=== PATIENT | male | born 1940 | race Caucasian/White ===

== ENCOUNTER 2018-12-15 13:35 | Inpatient (IN) ==
[2018-12-15] MEDS ORDERED: Nitroglycerin 0.4 MG TAB.SUBL SL PRN (13:54)
--- NOTE | 2018-12-15 13:54 | Emergency Department Note ---
Disposition Clinical Impression: Elevated lactic acid level Chest pain Qualifiers: Chest pain type: unspecified Qualified Code(s): R07.9 - Chest pain, unspecified Disposition: Admitted As Inpatient Chest Pain HPI - General Chief Complaint: ED Chest Pain Stated Complaint: chest pain Time Seen by Provider: 12/15/18 13:53 Source: patient Limitations: no limitations Vital Signs Reviewed: Yes Nursing Notes Reviewed: Yes - History of Present Illness HPI Narrative: 78-year-old male presents emergency department concern for chest burning. Patient states that this started last night, but really got worse this morning at 7 AM. Patient states that he has been nauseous all day, but he started becoming more diaphoretic and the chest burning got worse this afternoon which prompted his visit to the emergency department. Patient states that the chest burning radiates into his lower extremities, he also states that he has chronic back pain, but this is worse today. Patient does not have a history of myocardial infarction the past. Severity scale (1-10): 6 - Related Data Home Medications Medication Instructions Recorded Confirmed Baclofen [Lioresal] 10 mg PO HS 11/20/18 12/15/18 Meloxicam [Mobic] 7.5 mg PO BID 11/20/18 12/15/18 Minocycline HCl 100 mg PO BID 11/20/18 12/15/18 Primidone [Mysoline] 50 mg PO HS 11/20/18 12/15/18 Ropinirole HCl [Requip] 0.25 mg PO HS 11/20/18 12/15/18 Metoprolol Succinate [Toprol Xl] 75 mg PO DAILY 12/15/18 12/15/18 OxyCODONE/APAP 5/325 [Percocet 1 each PO Q6HR PRN 12/15/18 12/15/18 5/325 MG] Previous Rx's Medication Instructions Recorded BuPROPion XL (24 HR) [Wellbutrin 150 mg PO DAILY #7 tab.er.24h 02/05/17 Xl] Allergies Allergy/AdvReac Type Severity Reaction Status Date / Time lisinopril AdvReac Cough Verified 09/01/15 12:05 NSAIDS (Non-Steroidal AdvReac See Verified 09/01/15 12:05 Anti-Inflamma Comments All systems ED: reviewed and negative except as stated. Review of Systems: As Per HPI Constitutional: Denies: fever Cardiovascular: Reports: chest pain Respiratory: Denies: cough Gastrointestinal: Reports: nausea, vomiting, hematochezia Musculoskeletal: Reports: back pain Chest Pain PMH - Past Medical History Medical history: Reports: CVA, GERD, GI bleed, hyperlipidemia, hypertension Psychiatric history: Reports: depression - Social History Smoking Status: Never smoker Alcohol use: Reports: none Drug use: Reports: none Physical Exam - General Limitations: no limitations General appearance: alert - Eye Eye exam: Present: EOMI - ENT ENT exam: mucous membranes dry - Neck Neck exam: Present: trachea midline - Chest Chest inspection: Present: symmetric chest wall rise - Respiratory Respiratory exam: Present: normal lung sounds bilaterally. Absent: respiratory distress - Cardiovascular Cardiovascular exam: Present: tachycardia, irregular rhythm - Abdominal Exam Abdominal exam: Present: soft, Non-Tender. Absent: distention, guarding, rebou nd, rigidity - Extremities Exam Extremities exam: Present: normal capillary refill - Back Exam Back exam: Present: full ROM - Neurological Exam Neurological exam: Present: alert, oriented X3 - Psychiatric Psychiatric exam: Present: anxious - Skin Skin exam: Present: diaphoresis Course Vital Signs Temperature 98.6 F 12/15/18 13:42 Pulse Rate 111 12/15/18 13:42 Respiratory Rate 16 12/15/18 13:42 Blood Pressure 165/117 12/15/18 13:42 O2 Sat by Pulse Oximetry 100 12/15/18 13:42 Temperature 99.2 F 12/15/18 21:58 Pulse Rate 93 12/15/18 21:58 Respiratory Rate 16 12/15/18 21:58 Blood Pressure 107/56 12/15/18 21:58 O2 Sat by Pulse Oximetry 94 12/15/18 21:58 Oxygen Delivery Oxygen Delivery Room Air Chest Pain - [facility] Narrative Medical decision making narrative: 78-year-old male presents emergency department with concern for chest burning sensation that radiates to the back and legs. It is noted that patient had ST depressions in the septal leads that are new from previous ECG. Also shows a patient has an irregular rhythm. Concerning going in and out of atrial flutter. Chest pain relieved by nitroglycerin. After 3 sublingual nitroglycerin, pain is resolved completely. Initial troponin was negative here. I spoke to the web application dev specialist, Dr. Murillo, who is aware of the case. We did obtain a dissection study due to concern of all the patient's symptoms. There is no evidence of dissection. However, there was possibility of pericholecystic fluid versus wall thickening. We did obtain a gallbladder ultrasound. This revealed some sludging of the gallbladder with borderline prominent common bile duct. Patient did have mildly elevated hepatic transaminases. Patient to be admitted to the hospital for further observation and treatment of troponins. There was reported social situation as friends do not want to take care of the patient anymore as it has been difficult. Patient admitted to the hospital stable and not in acute distress. Chest X-Ray 12/15/18 13:54 IMPRESSION: Degenerative changes seen in both shoulders Mild cardiomegaly D/ / Stalin Lara MD / Stalin Lara MD Interpreting Provider: Stalin Lara MD Dissection 12/15/18 13:56 IMPRESSION: 1. Somewhat motion limited examination. 2. No evidence of aortic dissection or aneurysm. 3. Suggestion of pericholecystic fluid versus wall thickening, correlate for signs or symptoms of right upper quadrant tenderness. This can be further evaluated via dedicated ultrasound of the right upper quadrant. 4. Partial imaging of a nodular right thyroid gland, this can be further evaluated via dedicated outpatient ultrasound if not already performed. 5. Enlargement of the main pulmonary artery, correlate for signs or symptoms of pulmonary hypertension. D/ / 12/15/2018 16:11:53 Carrington Finn / angelita Interpreting Provider: Carrington Finn Gallbladder Ultrasound 12/15/18 16:14 IMPRESSION: Large right renal cyst measuring 8.6 cm maximally. Patient describes some pain while technologist was imaging the lesion. Mild hepatic steatosis. Some dependent sludge within the gallbladder with no acute features. Borderline prominent common bile duct at 7 mm. D/ / 12/15/2018 17:05:55 Marcelino Valles MD / alex Interpreting Provider: Marcelion Valles MD - Lab Data Result diagrams: 12/15/18 14:00 12/15/18 14:00 Lab Results 0412/15/18 12/15/18 Range/Units 14:00 14:00 14:00 WBC 13.8 H (4.3-11.1) K/mcL RBC 5.50 (4.19-5.50) M/mcL Hgb 17.0 H (12.9-16.9) g/dL Hct 51.3 H (37.5-50.1) % MCV 93.3 (83.0-100.0) fL MCH 30.9 (28.0-33.3) pg MCHC 33.1 (31.6-35.5) g/dL RDW 14.2 (11.5-14.5) % Plt Count 207 (140-400) K/mcL MPV 11.1 (9.4-12.4) fL Immature Gran % 0.4 (0-4) % Seg Neutrophils % 93.9 % Lymphocytes % 3.8 % Monocytes % 1.2 % Eosinophils % 0.4 % Basophils % 0.3 % Neutrophils # 13.0 H (1.6-8.9) K/mcL Lymphocytes # 0.5 L (0.6-4.6) K/mcL Monocytes # 0.2 (0.0-1.3) K/mcL Eosinophils # 0.1 (0.0-0.6) K/mcL Basophils # 0.0 (0.0-0.2) K/mcL PT 11.5 (9.4-12.1) Seconds INR 1.0 APTT 30.2 (26.0-36.0) Seconds Sodium (136-145) mEq/L Potassium (3.5-5.1) mEq/L Chloride (98-107) mEq/L Carbon Dioxide (23-29) mEq/L BUN (8-23) mg/dL Creatinine (0.70-1.30) mg/dL Est GFR ( Amer) (> 60) Est GFR (Non-Af Amer) (> 60) BUN/Creatinine Ratio (6-26) Glucose (70-105) mg/dL Calculated Osmolality (280-300) Lactic Acid (0.5-2.2) mmol/L Calcium (8.6-10.3) mg/dL Total Bilirubin (0.3-1.0) mg/dL Direct Bilirubin (0.0-0.2) mg/dL Indirect Bilirubin (0.0-1.2) mg/dL AST (13-39) Units/L ALT (7-52) Units/L Alkaline Phosphatase (34-104) Units/L Troponin I (< 0.04) ng/mL B-Natriuretic Peptide 243 H (Less than 100) pg/mL Serum Total Protein (6.4-8.9) g/dL Albumin (3.5-5.7) g/dL Globulin (2.4-3.5) g/dL Albumin/Globulin Ratio (1.1-2.2) 12/15/18 12/15/18 12/15/18 Range/Units 14:00 14:35 18:17 WBC (4.3-11.1) K/mcL RBC (4.19-5.50) M/mcL Hgb (12.9-16.9) g/dL Hct (37.5-50.1) % MCV (83.0-100.0) fL MCH (28.0-33.3) pg MCHC (31.6-35.5) g/dL RDW (11.5-14.5) % Plt Count (140-400) K/mcL MPV (9.4-12.4) fL Immature Gran % (0-4) % Seg Neutrophils % % Lymphocytes % % Monocytes % % Eosinophils % % Basophils % % Neutrophils # (1.6-8.9) K/mcL Lymphocytes # (0.6-4.6) K/mcL Monocytes # (0.0-1.3) K/mcL Eosinophils # (0.0-0.6) K/mcL Basophils # (0.0-0.2) K/mcL PT (9.4-12.1) Seconds INR APTT (26.0-36.0) Seconds Sodium 144 (136-145) mEq/L Potassium 3.8 (3.5-5.1) mEq/L Chloride 104 (98-107) mEq/L Carbon Dioxide 25 (23-29) mEq/L BUN 15 (8-23) mg/dL Creatinine 0.92 (0.70-1.30) mg/dL Est GFR ( Amer) > 60 (> 60) Est GFR (Non-Af Amer) > 60 (> 60) BUN/Creatinine Ratio 16 (6-26) Glucose 194 H (70-105) mg/dL Calculated Osmolality 304 H (280-300) Lactic Acid 3.2 H 1.9 (0.5-2.2) mmol/L Calcium 9.4 (8.6-10.3) mg/dL Total Bilirubin 2.5 H (0.3-1.0) mg/dL Direct Bilirubin 1.3 H (0.0-0.2) mg/dL Indirect Bilirubin 1.2 (0.0-1.2) mg/dL AST 130 H (13-39) Units/L ALT 62 H (7-52) Units/L Alkaline Phosphatase 93 (34-104) Units/L Troponin I 0.03 (< 0.04) ng/mL B-Natriuretic Peptide (Less than 100) pg/mL Serum Total Protein 6.7 (6.4-8.9) g/dL Albumin 4.4 (3.5-5.7) g/dL Globulin 2.3 L (2.4-3.5) g/dL Albumin/Globulin Ratio 1.9 (1.1-2.2) - EKG Data EKG attestation: Yes I reviewed and interpreted this EKG. EKG results narrative: 13:42 Heart rate 92 bpm, no PA interval, QRS duration 157 ms, QT 366 ms, right axis deviation. Atrial flutter. There are ST depressions noted in the septal leads. No from previous ECG. 13:50 No acute changes on this ECG when in comparison with the previous study obtained at 1342 Heart Score - Score History: Moderately Suspicious EKG: Significant ST-Depression Age: Greater than 65 Risk Factors: 1-2 risk factors Troponin: Less than normal limit HEART Score Total: 6
[2018-12-15] MEDS ORDERED: Nitroglycerin 0.4 MG TAB.SUBL SL ONE (13:55)
[2018-12-15] MEDS ORDERED: 0.9 % Sodium Chloride 1,000 ML ONE (13:55)
[2018-12-15] MEDS ORDERED: Ondansetron 4 MG/2 ML VIAL ONE (13:55)
[2018-12-15] MEDS ORDERED: Ondansetron 4 MG/2 ML VIAL IVP ONE (13:56)
[2018-12-15] MEDS ORDERED: Isovue-370 500 ML BOTTLE IVP ONE (13:56)
[2018-12-15 14:25] LABS: Basophils % 0.3 %; Eosinophils # 0.1 K/mcL (0.0-0.6); Eosinophils % 0.4 %; Hematocrit 51.3 % (37.5-50.1); Immature Granulocytes % 0.4 % (0-4); Lymphocytes # 0.5 K/mcL (0.6-4.6); Lymphocytes % 3.8 %; Mean Corpuscular HGB Conc 33.1 g/dL (31.6-35.5); Mean Corpuscular Hemoglobin 30.9 pg (28.0-33.3); Mean Corpuscular Volume 93.3 fL (83.0-100.0); Mean Platelet Volume 11.1 fL (9.4-12.4); Monocytes # 0.2 K/mcL (0.0-1.3); Monocytes % 1.2 %; Platelet Count 207 K/mcL (140-400); Red Cell Distribution Width 14.2 % (11.5-14.5); Segmented Neutrophils % 93.9 %
[2018-12-15] MEDS ORDERED: 0.9 % Sodium Chloride 1,000 ML IVC ONE (14:31)
[2018-12-15 14:34] LABS: Prothrombin Time 11.5 Seconds (9.4-12.1)
[2018-12-15 14:36] LABS: Activated Partial Thrombo Time 30.2 Seconds (26.0-36.0)
[2018-12-15 14:39] LABS: BUN/Creatinine Ratio 16 (6-26); Blood Urea Nitrogen 15 mg/dL (8-23); Calcium 9.4 mg/dL (8.6-10.3); Carbon Dioxide 25 mEq/L (23-29); Chloride 104 mEq/L (98-107); Glucose 194 mg/dL (70-105); Osmolality,Calculated 304 (280-300); Potassium 3.8 mEq/L (3.5-5.1); Sodium 144 mEq/L (136-145); Troponin I 0.03 ng/mL (< 0.04); eGFR For Non-African Americans > 60 (> 60)
--- NOTE | 2018-12-15 14:59 | Emergency Department Note ---
Disposition Clinical Impression: Elevated lactic acid level Chest pain Qualifiers: Chest pain type: unspecified Qualified Code(s): R07.9 - Chest pain, unspecified Disposition: Admitted As Inpatient Chest Pain HPI - General Chief Complaint: ED Chest Pain Stated Complaint: chest pain Time Seen by Provider: 12/15/18 13:53 Source: patient Limitations: no limitations - History of Present Illness Severity scale (1-10): 6 - Related Data Home Medications Medication Instructions Recorded Confirmed Minocycline HCl 100 mg PO BID 11/20/18 12/15/18 RX: Baclofen [Lioresal] 10 mg PO HS 11/20/18 12/15/18 RX: Meloxicam [Mobic] 7.5 mg PO BID 11/20/18 12/15/18 RX: Primidone [Mysoline] 50 mg PO HS 11/20/18 12/15/18 Ropinirole HCl [Requip] 0.25 mg PO HS 11/20/18 12/15/18 Metoprolol Succinate [Toprol Xl] 75 mg PO DAILY 12/15/18 12/15/18 OxyCODONE/APAP 5/325 [Percocet 1 each PO Q6HR PRN 12/15/18 12/15/18 5/325 MG] Previous Rx's Medication Instructions Recorded RX: BuPROPion XL (24 HR) 150 mg PO DAILY #7 tab.er.24h 02/05/17 [Wellbutrin Xl] Allergies Allergy/AdvReac Type Severity Reaction Status Date / Time lisinopril AdvReac Cough Verified 09/01/15 12:05 NSAIDS (Non-Steroidal AdvReac See Verified 09/01/15 12:05 Anti-Inflamma Comments Chest Pain PMH - Past Medical History Medical history: Reports: CVA, GERD, GI bleed, hyperlipidemia, hypertension Psychiatric history: Reports: depression - Social History Smoking Status: Never smoker Alcohol use: Reports: none Drug use: Reports: none Physical Exam - General Limitations: no limitations General appearance: alert Course Vital Signs Temperature 98.6 F 12/15/18 13:42 Pulse Rate 111 12/15/18 13:42 Respiratory Rate 16 12/15/18 13:42 Blood Pressure 165/117 12/15/18 13:42 O2 Sat by Pulse Oximetry 100 12/15/18 13:42 Temperature 99.2 F 12/15/18 21:58 Pulse Rate 93 12/15/18 21:58 Respiratory Rate 16 12/15/18 21:58 Blood Pressure 107/56 12/15/18 21:58 O2 Sat by Pulse Oximetry 94 12/15/18 21:58 Oxygen Delivery Oxygen Delivery Room Air Chest Pain - Lab Data Result diagrams: 12/15/18 14:00 12/15/18 14:00 Lab Results 12/15/18 12/15/18 12/15/18 Range/Units 14:00 14:00 14:00 WBC 13.8 H (4.3-11.1) K/mcL RBC 5.50 (4.19-5.50) M/mcL Hgb 17.0 H (12.9-16.9) g/dL Hct 51.3 H (37.5-50.1) % MCV 93.3 (83.0-100.0) fL MCH 30.9 (28.0-33.3) pg MCHC 33.1 (31.6-35.5) g/dL RDW 14.2 (11.5-14.5) % Plt Count 207 (140-400) K/mcL MPV 11.1 (9.4-12.4) fL Immature Gran % 0.4 (0-4) % Seg Neutrophils % 93.9 % Lymphocytes % 3.8 % Monocytes % 1.2 % Eosinophils % 0.4 % Basophils % 0.3 % Neutrophils # 13.0 H (1.6-8.9) K/mcL Lymphocytes # 0.5 L (0.6-4.6) K/mcL Monocytes # 0.2 (0.0-1.3) K/mcL Eosinophils # 0.1 (0.0-0.6) K/mcL Basophils # 0.0 (0.0-0.2) K/mcL PT 11.5 (9.4-12.1) Seconds INR 1.0 APTT 30.2 (26.0-36.0) Seconds Sodium (136-145) mEq/L Potassium (3.5-5.1) mEq/L Chloride (98-107) mEq/L Carbon Dioxide (23-29) mEq/L BUN (8-23) mg/dL Creatinine (0.70-1.30) mg/dL Est GFR ( Amer) (> 60) Est GFR (Non-Af Amer) (> 60) BUN/Creatinine Ratio (6-26) Glucose (70-105) mg/dL Calculated Osmolality (280-300) Lactic Acid (0.5-2.2) mmol/L Calcium (8.6-10.3) mg/dL Total Bilirubin (0.3-1.0) mg/dL Direct Bilirubin (0.0-0.2) mg/dL Indirect Bilirubin (0.0-1.2) mg/dL AST (13-39) Units/L ALT (7-52) Units/L Alkaline Phosphatase (34-104) Units/L Troponin I (< 0.04) ng/mL B-Natriuretic Peptide 243 H (Less than 100) pg/mL Serum Total Protein (6.4-8.9) g/dL Albumin (3.5-5.7) g/dL Globulin (2.4-3.5) g/dL Albumin/Globulin Ratio (1.1-2.2) 12/15/18 12/15/18 12/15/18 Range/Units 14:00 14:35 18:17 WBC (4.3-11.1) K/mcL RBC (4.19-5.50) M/mcL Hgb (12.9-16.9) g/dL Hct (37.5-50.1) % MCV (83.0-100.0) fL MCH (28.0-33.3) pg MCHC (31.6-35.5) g/dL RDW (11.5-14.5) % Plt Count (140-400) K/mcL MPV (9.4-12.4) fL Immature Gran % (0-4) % Seg Neutrophils % % Lymphocytes % % Monocytes % % Eosinophils % % Basophils % % Neutrophils # (1.6-8.9) K/mcL Lymphocytes # (0.6-4.6) K/mcL Monocytes # (0.0-1.3) K/mcL Eosinophils # (0.0-0.6) K/mcL Basophils # (0.0-0.2) K/mcL PT (9.4-12.1) Seconds INR APTT (26.0-36.0) Seconds Sodium 144 (136-145) mEq/L Potassium 3.8 (3.5-5.1) mEq/L Chloride 104 (98-107) mEq/L Carbon Dioxide 25 (23-29) mEq/L BUN 15 (8-23) mg/dL Creatinine 0.92 (0.70-1.30) mg/dL Est GFR ( Amer) > 60 (> 60) Est GFR (Non-Af Amer) > 60 (> 60) BUN/Creatinine Ratio 16 (6-26) Glucose 194 H (70-105) mg/dL Calculated Osmolality 304 H (280-300) Lactic Acid 3.2 H 1.9 (0.5-2.2) mmol/L Calcium 9.4 (8.6-10.3) mg/dL Total Bilirubin 2.5 H (0.3-1.0) mg/dL Direct Bilirubin 1.3 H (0.0-0.2) mg/dL Indirect Bilirubin 1.2 (0.0-1.2) mg/dL AST 130 H (13-39) Units/L ALT 62 H (7-52) Units/L Alkaline Phosphatase 93 (34-104) Units/L Troponin I 0.03 (< 0.04) ng/mL B-Natriuretic Peptide (Less than 100) pg/mL Serum Total Protein 6.7 (6.4-8.9) g/dL Albumin 4.4 (3.5-5.7) g/dL Globulin 2.3 L (2.4-3.5) g/dL Albumin/Globulin Ratio 1.9 (1.1-2.2) Attestation Statement - Attestation Attestation: Resident Attestation: I examined this patient and my medical decision making was reviewed with the Resident Physician. I agree with the documented findings, disposition and treatment plan as described except to the extent set forth below. We independently had [id number] contact with the patient. EKG reviewed with resident physician. Please see documentation. Patient presenting today for evaluation of chest pain and back pain. Patient states overall symptoms of back pain or lower hip pain which been previously evaluated by pain management. Patient has had one week of fatigue with decreased appetite and associated nausea. Patient developed chest pain last night. Chest pain across his chest which she describes as sharp when asked about pressure he states that is a better description. Patient has nausea and did have an episode of vomiting while in the emergency department. Patient states the back pain radiates up into the thoracic spine. Patient is tachy cardic at 120. Patient does have ST depression in V1 and V2. Posterior EKG was performed without any evidence of elevation. Patient EKG change from prior EKG. Patient will undergo further evaluation for chest pain including CT scan for aortic dissection. The patient does not have any murmurs on exam. Patient lungs are clear to auscultation bilaterally, abdomen is soft nontender to palpation. No evidence of lesions, rashes, ecchymosis to the skin. Patient will receive fluids as well as reevaluation. Disposition pending.
[2018-12-15] MEDS ORDERED: 0.9 % Sodium Chloride 500 ML IVC ONE (16:19)
[2018-12-15 16:36] LABS: Alanine Aminotransferase 62 Units/L (7-52); Albumin 4.4 g/dL (3.5-5.7); Albumin/Globulin Ratio 1.9 (1.1-2.2); Alkaline Phosphatase 93 Units/L (34-104); Aspartate Amino Transferase 130 Units/L (13-39); Bilirubin,Direct 1.3 mg/dL (0.0-0.2); Bilirubin,Indirect 1.2 mg/dL (0.0-1.2); Bilirubin,Total 2.5 mg/dL (0.3-1.0); Globulin 2.3 g/dL (2.4-3.5); Total Protein 6.7 g/dL (6.4-8.9)
[2018-12-15] MEDS ORDERED: Aspirin 325 MG TABLET PO ONE (18:14)
[2018-12-15] MEDS ORDERED: Naloxone 0.4 MG/ML INJ IVP PRN (19:05)
[2018-12-15] MEDS: Metoprolol XL (24 HR) Succ 50 MG TAB.ER.24H PO SCH (20:15)
--- NOTE | 2018-12-15 21:21 | Internal Med History&Physical ---
Date of Encounter: 12/15/18 Time of Encounter: 19:00 Internal Medicine - H&P: HPI Chief complaint: CHEST PAIN Admitted From: Home Plans for Post Hospital Care: Home History of present illness: The patient is a 78-year-old male. Never been diagnosed with a cardiovascular/cerebrovascular disease. It was started today morning when he woke up with severe chest pain across his anterior chest. Burning quality. Seven-point on 10-point scale. With some radiation to lower extremities. Associated with some nausea. Not associated with other symptoms like dyspnea, diaphoresis or, nausea or vomiting. He has not had any coughing or wheezing recently. His suddenly last week. The pain lasted for about 1 hour; was nearly gone when he was arriving to the emergency department. He has not experienced any other chest pain recently. I found him in bed; in the emergency department. He was pain free. However, he tells me that he suffers from severe low back pain. He can be standing/walking not longer than 15 minutes. He had a low back surgery sometime last yeardone by Dr. Rojas. He takes average of 3 tablets of Percocet (5/325) per day to control his low back pain. The patient had chemical stress test done before his last year surgery. It was normal. PAST MEDICAL HX: He has been treated for hypertension, hyperlipidemia and GERD. He had her GI bleeding in the past. He suffers from chronic low back pain; see above. PAST FAMILY HX: Positive for HTN. PAST SOCIAL HX: He has never used tobacco. Denies alcohol and illicit drugs use. REVIEW OF SYSTEMS: All 14 organ systems were reviewed by me with the patient. Positive and pertinent negative findings are listed above. The rest of organ systems is negative. PHYSICAL EXAM: Skin: Free of rash and discoloration. Eyes: Sclera is white. There is no discharge from eyes. ENMT: Oral/pharyngeal mucosa is normal in appearance. There is no discharge from nose or ears. Respiratory: Normal breath sounds with no crackles and wheezes bilaterally. CV: Heart is regular with no gallop or murmur. GI: Abdomen is flat and soft with no palpable mass or visceromegaly. : There is no tenderness in patient's flanks bilaterally. Neuro exam: He has good strength in upper and lower extremities. He has normal eye movements. Psychiatric: He has decreased affect. His thought process is appropriate to the situation. ADDITIONAL DATA: EKG done at admission shows sinus tachycardia with no evidence for ischemia or other abnormalities. Chest x-ray showed mild cardiomegaly. CT angiogram (dissection study) did not show any evidence of aortic dissection or aneurysm. It showed suggestion of pericholecystic fluid versus wall thickening; of gallbladder. Ultrasound of gallbladder showed some dependent sludge within the gallbladder, with no acute features. It showed large right renal cyst, measuring 8.6 cm maximally. CBC shows hemoglobin of 17.0 with WBC of 13.8 thousand and normal platelet count. Electrolytes are normal. Creatinine is 0.92. Random glucose is 194. Troponin is 0.03 with BNP of 243. A/P: Atypical chest pain. No history of cardiovascular/cerebrovascular disease. Normal chemical her stress test done last year. I will watch him in the telemetry floor. I will repeat EKG and troponin in the morning. Leukocytosis. Could be reactive. I will repeat his CBC tomorrow morning. Chronic low back pain. History of low back surgery (2018). To continue when necessary Percocet and other medications for pain control. Past Med Surg Social Fam HX - Past Medical History Medical history: CVA, GERD, GI bleed, hyperlipidemia, hypertension Additional medical history: heart murmur Psychiatric history: depression - Past Surgical History Additional surgical history: T&A. colonoscopy - Social History Smoking Status: Never smoker Smokeless Tobacco Status: No Alcohol use: none Drug use: none Internal Medicine - H&P: Meds BuPROPion XL (24 HR) [Wellbutrin Xl] 150 mg PO DAILY #7 tab.er.24h 02/05/17 [Rx] Baclofen [Lioresal] 10 mg PO HS 11/20/18 [History] Meloxicam [Mobic] 7.5 mg PO BID 11/20/18 [History] Minocycline HCl 100 mg PO BID 11/20/18 [History] Primidone [Mysoline] 50 mg PO HS 11/20/18 [History] Ropinirole HCl [Requip] 0.25 mg PO HS 11/20/18 [History] Metoprolol Succinate [Toprol Xl] 75 mg PO DAILY 12/15/18 [History] OxyCODONE/APAP 5/325 [Percocet 5/325 MG] 1 each PO Q6HR PRN 12/15/18 [History] Allergy/AdvReac Type Severity Reaction Status Date / Time lisinopril AdvReac Cough Verified 09/01/15 12:05 NSAIDS (Non-Steroidal AdvReac See Verified 09/01/15 12:05 Anti-Inflamma Comments - Constitutional Vitals: Temp Pulse Resp BP Pulse Ox 98.6 F 125 16 139/81 93 12/15/18 13:42 12/15/18 20:16 12/15/18 20:16 12/15/18 20:16 12/15/18 20:16 General appearance: Present: A&O X 3, no acute distress, answers questions appropriately Exam: xx Internal Med - H&P Results - Labs CBC & Chem 7: 12/15/18 14:00 12/15/18 14:00 Labs: Short CBC 12/15/18 Range/Units 14:00 WBC 13.8 H (4.3-11.1) K/mcL Hgb 17.0 H (12.9-16.9) g/dL Hct 51.3 H (37.5-50.1) % Plt Count 207 (140-400) K/mcL Neutrophils # 13.0 H (1.6-8.9) K/mcL BMP 12/15/18 14:00 Sodium 144 Potassium 3.8 Chloride 104 Carbon Dioxide 25 BUN 15 Creatinine 0.92 Glucose 194 H Calcium 9.4 Cardiac Enzymes 12/15/18 Range/Units 14:00 Troponin I 0.03 (< 0.04) ng/mL Liver Function 12/15/18 Range/Units 14:00 Total Bilirubin 2.5 H (0.3-1.0) mg/dL Direct Bilirubin 1.3 H (0.0-0.2) mg/dL AST 130 H (13-39) Units/L ALT 62 H (7-52) Units/L Alkaline Phosphatase 93 (34-104) Units/L Albumin 4.4 (3.5-5.7) g/dL - Impressions ITS Impressions Chest X-Ray 12/15/18 13:54 IMPRESSION: Degenerative changes seen in both shoulders Mild cardiomegaly D/ / Stalin Lara MD / Stalin Lara MD Interpreting Provider: Stalin Lara MD Dissection 12/15/18 13:56 IMPRESSION: 1. Somewhat motion limited examination. 2. No evidence of aortic dissection or aneurysm. 3. Suggestion of pericholecystic fluid versus wall thickening, correlate for signs or symptoms of right upper quadrant tenderness. This can be further evaluated via dedicated ultrasound of the right upper quadrant. 4. Partial imaging of a nodular right thyroid gland, this can be further evaluated via dedicated outpatient ultrasound if not already performed. 5. Enlargement of the main pulmonary artery, correlate for signs or symptoms of pulmonary hypertension. D/ / 12/15/2018 16:11:53 Carrington Finn / angelita Interpreting Provider: Carrington Finn Gallbladder Ultrasound 12/15/18 16:14 IMPRESSION: Large right renal cyst measuring 8.6 cm maximally. Patient describes some pain while technologist was imaging the lesion. Mild hepatic steatosis. Some dependent sludge within the gallbladder with no acute features. Borderline prominent common bile duct at 7 mm. D/ / 12/15/2018 17:05:55 Marcelino Valles MD / [facility] Interpreting Provider: Marcelino Valles MD - Assessment and Plan (1) Atypical chest pain Current Visit: Yes Status: Acute (2) Leukocytosis Current Visit: Yes Status: Acute Qualifiers: Leukocytosis type: unspecified Qualified Code(s): D72.829 - Elevated white blood cell count, unspecified (3) Chronic low back pain Current Visit: Yes Status: Acute Qualifiers: Back pain laterality: midline Sciatica presence: without sciatica Qualified Code(s): M54.5 - Low back pain; G89.29 - Other chronic pain - Time Spent With Patient Total time spent is greater than 50% in coordination of care (as documented) at patient's floor/unit and/or counseling patient: 25 - 35 minutes
[2018-12-15] MEDS: Primidone 50 MG TABLET PO SCH (21:32)
[2018-12-15] MEDS: Baclofen 10 MG TABLET PO SCH (21:32)
[2018-12-15] MEDS: rOPINIRole 0.25 MG TABLET PO SCH (21:33)
[2018-12-15] MEDS: *HR* OxyCODONE/APAP 5/325 TABLET PO PRN (21:52)
[2018-12-16 02:45] LABS: Hematocrit 44.2 % (37.5-50.1); Mean Corpuscular HGB Conc 32.1 g/dL (31.6-35.5); Mean Corpuscular Hemoglobin 30.7 pg (28.0-33.3); Mean Corpuscular Volume 95.7 fL (83.0-100.0); Mean Platelet Volume 11.4 fL (9.4-12.4); Platelet Count 198 K/mcL (140-400); Red Blood Count 4.62 M/mcL (4.19-5.50); Red Cell Distribution Width 14.5 % (11.5-14.5); Segmented Neutrophils % 89.1 %
[2018-12-16 02:46] LABS: Basophils # 0.1 K/mcL (0.0-0.2); Basophils % 0.3 %; Eosinophils % 0.1 %; Immature Granulocytes % 0.6 % (0-4); Lymphocytes % 4.6 %; Monocytes # 1.1 K/mcL (0.0-1.3); Monocytes % 5.3 %; Neutrophils # 18.4 K/mcL (1.6-8.9)
[2018-12-16 02:47] LABS: Hemoglobin 14.2 g/dL (12.9-16.9)
[2018-12-16 03:10] LABS: Albumin 3.6 g/dL (3.5-5.7); Bilirubin,Direct 3.4 mg/dL (0.0-0.2); Bilirubin,Indirect 1.4 mg/dL (0.0-1.2); Bilirubin,Total 4.8 mg/dL (0.3-1.0); Globulin 1.8 g/dL (2.4-3.5); Total Protein 5.4 g/dL (6.4-8.9); Troponin I 0.05 ng/mL (< 0.04)
[2018-12-16] MEDS: BuPROPion XL (24 HR) 150 MG TABLET PO SCH (09:09)
[2018-12-16] MEDS: Metoprolol XL (24 HR) Succ 50 MG TAB.ER.24H PO SCH (09:09)
--- NOTE | 2018-12-16 10:39 | Cardiology Consult Note ---
Date of Encounter: 12/16/18 Time of Encounter: 09:00 Assessment and Plan (1) Chest pain Current Visit: Yes Status: Acute Chest pain typical/atypical for angina. Has several risk factors for CAD. EKG unchanged from 2013. Minimal elevation in troponin to 0.05 which may be demand. Will schedule for pharmacologic stress test to evaluate for ischemia. Further recommendations pending results. Qualifiers: Chest pain type: unspecified Qualified Code(s): R07.9 - Chest pain, unspecified (2) Hypertension Current Visit: No Status: Chronic Continue current meds. Qualifiers: Hypertension type: essential hypertension Qualified Code(s): I10 - Essential (primary) hypertension Discussion w patient/family: The assessment and plan as outlined above was discussed with the patient and/or family members who expressed understanding and agreement. All questions were answered. Thank you for involving us in the care of your patient. Please call with any questions. History of Present Illness Consult date: 12/16/18 Requesting physician: Trenton Diaz Consult reason: chest pain Chief complaint: chest pain History of present illness: Mr. Tovar is a 78 year old male with HTN, hyperlipidemia, hx CVA presents to [facility] with c/o CP. For past week, pt has had intermittent substernal chest discomfort. Notes occa sional nausea associated with chest pain. Fatigued. Yesterday had worst episode lasting hours and therefore presented to ED for further evaluation and tx. Pt notes that has been very upset since last week when unexpectedly. Chest pain started after her . Denies alleviating/ exacerbating factors. While in ED, pt given 3 SL NTG which did alleviate CP. Denies prior cardiac history. Remote cardiac testing. Echocardiogram July 2016- EF 60-65%, normal LV size/function with mild concentric LVH, no sig valvular heart disease. Past Med Surg Social Fam HX - Past Medical History Medical history: CVA, GERD, GI bleed, hyperlipidemia, hypertension Additional medical history: heart murmur Psychiatric history: depression - Past Surgical History Additional surgical history: T&A. colonoscopy - Social History Smoking Status: Never smoker Smokeless Tobacco Status: No Alcohol use: none Drug use: none - Family History Brother Hx Family Cancer: Yes (skin) Hx Family Endocrine Disorder: Yes (DM) Mother Hx Family Cancer: Yes (breast) Medications and Allergies BuPROPion XL (24 HR) [Wellbutrin Xl] 150 mg PO DAILY #7 tab.er.24h 02/05/17 [Rx] Baclofen [Lioresal] 10 mg PO HS 11/20/18 [History] Meloxicam [Mobic] 7.5 mg PO BID 11/20/18 [History] Minocycline HCl 100 mg PO BID 11/20/18 [History] Primidone [Mysoline] 50 mg PO HS 11/20/18 [History] Ropinirole HCl [Requip] 0.25 mg PO HS 11/20/18 [History] Metoprolol Succinate [Toprol Xl] 75 mg PO DAILY 12/15/18 [History] OxyCODONE/APAP 5/325 [Percocet 5/325 MG] 1 each PO Q6HR PRN 12/15/18 [History] Allergy/AdvReac Type Severity Reaction Status Date / Time lisinopril AdvReac Cough Verified 09/01/15 12:05 NSAIDS (Non-Steroidal AdvReac See Verified 09/01/15 12:05 Anti-Inflamma Comments All Systems Review: The remainder of the systems were reviewed and are negative - Cardiovascular Cardiovascular: as per HPI Physical Examination Vital Signs, Last 4 Hours Temp Pulse Resp BP Pulse Ox 12/16/18 09:14 78 18 92 12/16/18 07:18 98.2 F 45 15 118/69 92 General: Conversant, No Apparent Distress HEENT: Atraumatic, Normocephaly, Mucus Membranes Moist Neck: No JVD, Normal carotid pulses Cardiac: Reg Rate and Rhythm, Normal S1 and S2, No Murmur Lungs: Normal Breath Sounds, No Wheeze, Rales, Rhonchi Neuro: Alert and responsive, No focal deficits noted Abdomen: Soft, Non-Tender Skin: No rashes noted on visualized skin Musculoskeletal: No Chest Wall Tenderness Extremities: No Clubbing, No Cyanosis, No Edema, Normal Pulses Results 12/16/18 02:19 12/15/18 14:00 Lab Results 12/15/18 12/15/18 12/15/18 14:00 14:00 14:00 WBC 13.8 H Hgb 17.0 H Hct 51.3 H Plt Count 207 INR 1.0 APTT 30.2 Sodium Potassium Chloride Carbon Dioxide BUN Creatinine Glucose Calcium Total Bilirubin AST ALT Alkaline Phosphatase Troponin I B-Natriuretic Peptide 243 H 12/15/18 12/16/18 12/16/18 14:00 02:19 02:19 WBC 20.7 H Hgb 14.2 D Hct 44.2 Plt Count 198 INR APTT Sodium 144 Potassium 3.8 Chloride 104 Carbon Dioxide 25 BUN 15 Creatinine 0.92 Glucose 194 H Calcium 9.4 Total Bilirubin 2.5 H 4.8 H AST 130 H 171 H ALT 62 H 159 H Alkaline Phosphatase 93 85 Troponin I 0.03 0.05 H* B-Natriuretic Peptide - EKG Interpretation EKG results cardiology: personally reviewed (Sinus tachycardia with PACs, RBBB, LAFB- unchanged compared to prior EKGs from 2012, 2016) Consult Discharge Plan - Plan Referrals: Alondra Reynolds, [facility] [Primary Care Provider] - (Follow up has been requested)
[2018-12-16] MEDS ORDERED: Regadenoson 0.4 MG/5 ML SYRINGE IVP ONE (10:52)
[2018-12-16] MEDS: *HR* OxyCODONE/APAP 5/325 TABLET PO PRN (15:10)
[2018-12-16] MEDS ORDERED: *HR* Heparin 5,000 UNIT/ML VIAL IVP ONE (19:35)
[2018-12-16] MEDS ORDERED: *HR* Heparin 5,000 UNIT/ML VIAL IVP PRN (19:35)
[2018-12-16 20:25] LABS: Hemoglobin 14.7 g/dL (12.9-16.9); Mean Corpuscular Hemoglobin 30.4 pg (28.0-33.3); Mean Corpuscular Volume 95.2 fL (83.0-100.0); Mean Platelet Volume 12.3 fL (9.4-12.4); Platelet Count 114 K/mcL (140-400); Red Blood Count 4.83 M/mcL (4.19-5.50); Red Cell Distribution Width 14.5 % (11.5-14.5)
[2018-12-16 20:33] LABS: INR 1.3
[2018-12-16] MEDS: Primidone 50 MG TABLET PO SCH (21:07)
[2018-12-16] MEDS: Baclofen 10 MG TABLET PO SCH (21:07)
[2018-12-16] MEDS: rOPINIRole 0.25 MG TABLET PO SCH (21:07)
[2018-12-16] MEDS: Heparin 25,000 UNIT/250 ML D5W 25,000 UNIT/250 ML IV.SOLN IVC SCH (21:11)
--- NOTE | 2018-12-16 21:23 | Internal Med Progress Note ---
Hospitalist Progress Note - Encounter Date of Encounter: 12/16/18 Time of Encounter: 19:00 - Subjective Interval History: SUBJECTIVE: The patient feels good. Denies chest pain and difficulty breathing. Denies coughing and wheezing. Denies abdominal pain, nausea and vomiting. He seems to have normal bowel movements. He has normal urination. OBJECTIVE: Skin: Free of rash and discoloration. ENMT: Oral/pharyngeal mucosa is normal in appearance. Eyes: Sclera is yellowish. There is no discharge from eyes. Respiratory: Normal breath sounds; no crackles or wheezes. CV: Heart is regular; no gallop or murmur. GI: Abdomen is soft and not tender. There is no palpable mass or visceromegaly. Neuro: There is no focal deficits. ADDITIONAL DATA: CBC shows increased WBC of 20.7 thousand; 13.8 thousand yesterday. Hemoglobin is 14.2. Platelet count is 198,000. Liver function tests from today are showing increased time bilirubin of 4.8; 2.5 yesterday. With AST of 171, ALT of 159 and alk phos of 85. They were 130, 62 and 93 yesterday respectively. Pro time INR is 1.0. The patient had stress test done today. It showed no ischemia on perfusion study. It showed extensive inferior/inferior lateral/inferior septal infarct, on perfusion study. Likely representing old [place]. Estimated ejection fraction is 40%. Cardiac telemetry: It showed normal sinus rhythm in the morning. The patient developed atrial flutter with ventricular rate of about 75 in the early afternoon. ASSESSMENT AND PLAN: Patient was admitted for evaluation of his chest pain. It looks like he has underlying coronary artery disease (had myocardial infarction in the past). Developed atrial flutter with controlled ventricular rate in the afternoon. I discussed this case with Dr. Shena Murillo, cardiology. We will start this patient on IV heparin drip. The patient eventually will need cardiac catheterization. It will be on hold due to his abnormal liver function tests. Abnormal liver function tests. It looks, that this patient is developing some kind of hepatitis. I will check his viral hepatitis panel. I will repeat his liver function tests in the morning. Leukocytosis. Likely secondary to his liver disease. I would repeat his CBC in the morning. Chronic low back pain. Had low back surgery last year. To continue when necessary Percocet. - Exam Vitals: Temp Pulse Resp BP Pulse Ox 99.1 F 97 17 127/76 92 12/16/18 19:03 12/16/18 19:03 12/16/18 19:03 12/16/18 19:03 12/16/18 19:03 Exam: xx - Assessment and Plan (1) Atypical chest pain Current Visit: Yes Status: Acute (2) CAD (coronary artery disease) Current Visit: Yes Status: Chronic (3) LFT elevation Current Visit: Yes Status: Acute (4) Leukocytosis Current Visit: Yes Status: Acute (5) Chronic low back pain Current Visit: Yes Status: Acute - Time Spent with Patient Total time spent is greater than 50% in coordination of care (as documented) at patient's floor/unit and/or counseling patient: 25 - 35 minutes Plan of Care Discussed with: patient Internal Medicine: Result - Labs CBC & Chem 7: 12/16/18 20:00 12/15/18 14:00 Labs: Short CBC 12/16/18 12/16/18 Range/Units 02: 20:00 WBC 20.7 H 14.3 H (4.3-11.1) K/mcL Hgb 14.2 D 14.7 (12.9-16.9) g/dL Hct 44.2 46.0 (37.5-50.1) % Plt Count 198 114 L (140-400) K/mcL Neutrophils # 18.4 H (1.6-8.9) K/mcL Cardiac Enzymes 12/16/18 Range/Units 02:19 Troponin I 0.05 H* (< 0.04) ng/mL Liver Function 12/16/18 Range/Units 02:19 Total Bilirubin 4.8 H (0.3-1.0) mg/dL Direct Bilirubin 3.4 H (0.0-0.2) mg/dL AST 171 H (13-39) Units/L ALT 159 H (7-52) Units/L Alkaline Phosphatase 85 (34-104) Units/L Albumin 3.6 (3.5-5.7) g/dL - ABG Interpretation ABG results: PT/INR, D-dimer PT 15.0 Seconds (9.4-12.1) H 12/16/18 20:00 - Impressions Impressions Gallbladder Ultrasound 12/15/18 16:14 IMPRESSION: Large right renal cyst measuring 8.6 cm maximally. Patient describes some pain while technologist was imaging the lesion. Mild hepatic steatosis. Some dependent sludge within the gallbladder with no acute features. Borderline prominent common bile duct at 7 mm. D/ / 12/15/2018 17:05:55 Marcelino Valles MD / alex Interpreting Provider: Marcelino Valles MD Consult Discharge Plan - Plan Referrals: Alondra Reynolds CNP [Primary Care Provider] - (Follow up has been requested) (2) CAD (coronary artery disease) Qualifiers: Coronary Disease-Associated Artery/Lesion type: [place] artery [place] vs. transplanted heart: [place] heart Associated angina: with unspecified angina Qualified Code(s): I25.119 - Atherosclerotic heart disease of [place] coronary artery with unspecified angina pectoris (4) Leukocytosis Qualifiers: Leukocytosis type: unspecified Qualified Code(s): D72.829 - Elevated white blood cell count, unspecified (5) Chronic low back pain Qualifiers: Back pain laterality: midline Sciatica presence: without sciatica Qualified Code(s): M54.5 - Low back pain; G89.29 - Other chronic pain
[2018-12-16 23:59] LABS: Basophils # 0.1 K/mcL (0.0-0.2); Basophils % 0.4 %; Eosinophils # 0.5 K/mcL (0.0-0.6); Eosinophils % 3.4 %; Hematocrit 44.1 % (37.5-50.1); Hemoglobin 14.4 g/dL (12.9-16.9); Immature Granulocytes % 0.3 % (0-4); Lymphocytes # 0.6 K/mcL (0.6-4.6); Lymphocytes % 4.3 %; Mean Corpuscular HGB Conc 32.7 g/dL (31.6-35.5); Mean Corpuscular Hemoglobin 30.6 pg (28.0-33.3); Mean Corpuscular Volume 93.8 fL (83.0-100.0); Mean Platelet Volume 11.8 fL (9.4-12.4); Monocytes # 0.9 K/mcL (0.0-1.3); Monocytes % 6.2 %; Neutrophils # 11.8 K/mcL (1.6-8.9); Platelet Count 147 K/mcL (140-400); Red Cell Distribution Width 14.5 % (11.5-14.5); Segmented Neutrophils % 85.4 %
[2018-12-17 00:10] LABS: Alanine Aminotransferase 120 Units/L (7-52); Albumin 3.6 g/dL (3.5-5.7); Albumin/Globulin Ratio 1.7 (1.1-2.2); Alkaline Phosphatase 90 Units/L (34-104); Aspartate Amino Transferase 82 Units/L (13-39); BUN/Creatinine Ratio 23 (6-26); Bilirubin,Direct 2.9 mg/dL (0.0-0.2); Bilirubin,Indirect 1.2 mg/dL (0.0-1.2); Bilirubin,Total 4.1 mg/dL (0.3-1.0); Blood Urea Nitrogen 19 mg/dL (8-23); Calcium 8.3 mg/dL (8.6-10.3); Carbon Dioxide 24 mEq/L (23-29); Chloride 108 mEq/L (98-107); Globulin 2.1 g/dL (2.4-3.5); Glucose 147 mg/dL (70-105); Osmolality,Calculated 295 (280-300); Potassium 3.5 mEq/L (3.5-5.1); Sodium 140 mEq/L (136-145); Total Protein 5.7 g/dL (6.4-8.9); eGFR For Non-African Americans > 60 (> 60)
[2018-12-17 00:27] LABS: Bilirubin,Urine Large (Negative); Blood,Urine Negative (Negative); Clarity,Urine Clear (Clear); Glucose,Urine (UA) Normal (Normal); Ketones,Urine Trace mg/dL (Negative); Leukocyte Esterase,Urine Small (Negative); Nitrite,Urine Positive (Negative); Protein,Urine 100 mg/dL (Neg-Trace); Specific Gravity,Urine 1.027 (1.010-1.025)
[2018-12-17 00:29] LABS: Hyaline Casts,Urine None Seen per lpf (None-Few); RBC,Urine 0-3 per hpf (0-3); Squamous Epithelial Cell,Urine Many per lpf (None-Few)
[2018-12-17 00:31] LABS: Color,Urine Amber (Yellow)
[2018-12-17 00:47] LABS: Bacteria,Urine Moderate per hpf (None-Few); White Blood Cell Casts,Urine Few per lpf (None Seen)
[2018-12-17 00:48] LABS: Mucus,Urine Few (Few)
[2018-12-17 03:00] LABS: Hepatitis B Surface Antigen Nonreactive (Nonreactive)
[2018-12-17 03:29] LABS: Hepatitis B Core IgM Nonreactive (Nonreactive); Hepatitis C Virus Antibody Nonreactive (Nonreactive)
[2018-12-17 03:31] LABS: Hepatitis A Antibody IgM Nonreactive (Nonreactive)
[2018-12-17] MEDS: *HR* Heparin 5,000 UNIT/ML VIAL IVP PRN ×2 (04:18→16:53)
[2018-12-17] MEDS: *HR* OxyCODONE/APAP 5/325 TABLET PO PRN (08:36)
[2018-12-17] MEDS: BuPROPion XL (24 HR) 150 MG TABLET PO SCH (08:36)
[2018-12-17] MEDS: Aspirin 81 MG TAB.CHEW PO SCH (08:36)
[2018-12-17] MEDS: Metoprolol XL (24 HR) Succ 50 MG TAB.ER.24H PO SCH (08:37)
--- NOTE | 2018-12-17 09:58 | Event Note ---
Date of Encounter: 12/17/18 Time of Encounter: 09:51 - Cardiology Event Note Stress test resulted with large area of infarct, no ischemia. Telemetry reviewed with Dr.Jennifer Murillo, possible a.flutter vs atrial tachycardia. WIll have EP review strips in am. HR controlled. Currently on heparin drip. With leukocytosis and transaminitis work up per primary team, recommend LHC prior to discharge pending clinical course. Continue heparin drip for anticoagulation. Will check TTE.
--- NOTE | 2018-12-17 10:18 | Electrocardiograph Report ---
[facility] Test Date: 2018-12-15 Pat Name: Bud Tovar Department: EXAM5 Room: 3B44 Gender: M Certified Athletic Trainer: : 1940 Requested By: Trenton Diaz Order Number: [id number] Reading MD: Merritt Augustine Measurements Intervals [place] Rate: 92 P: [place]: QRS: -96 QRSD: 157 T: 63 QT: 366 QTc: 453 Interpretive Statements Sinus tackycardia RBBB and LAFB Electronically Signed On 12-17-2018 10:16:20 EDT by Merritt Augustnie
[2018-12-17 10:57] LABS: Basophils % 0.4 %; Eosinophils # 0.4 K/mcL (0.0-0.6); Eosinophils % 4.1 %; Immature Granulocytes % 0.4 % (0-4); Lymphocytes # 0.4 K/mcL (0.6-4.6); Mean Corpuscular HGB Conc 32.6 g/dL (31.6-35.5); Mean Corpuscular Hemoglobin 30.6 pg (28.0-33.3); Mean Corpuscular Volume 94.1 fL (83.0-100.0); Mean Platelet Volume 11.9 fL (9.4-12.4); Monocytes # 0.8 K/mcL (0.0-1.3); Neutrophils # 8.9 K/mcL (1.6-8.9); Platelet Count 142 K/mcL (140-400); Red Blood Count 4.57 M/mcL (4.19-5.50); Red Cell Distribution Width 14.3 % (11.5-14.5); Segmented Neutrophils % 84.1 %
[2018-12-17 11:16] LABS: Alanine Aminotransferase 101 Units/L (7-52); Albumin 3.4 g/dL (3.5-5.7); Albumin/Globulin Ratio 1.6 (1.1-2.2); Alkaline Phosphatase 96 Units/L (34-104); Aspartate Amino Transferase 60 Units/L (13-39); BUN/Creatinine Ratio 21 (6-26); Bilirubin,Indirect 1.1 mg/dL (0.0-1.2); Bilirubin,Total 3.1 mg/dL (0.3-1.0); Blood Urea Nitrogen 16 mg/dL (8-23); Calcium 8.3 mg/dL (8.6-10.3); Carbon Dioxide 26 mEq/L (23-29); Chloride 108 mEq/L (98-107); Globulin 2.1 g/dL (2.4-3.5); Glucose 139 mg/dL (70-105); Osmolality,Calculated 293 (280-300); Potassium 3.6 mEq/L (3.5-5.1); Sodium 140 mEq/L (136-145); Total Protein 5.5 g/dL (6.4-8.9); eGFR For Non-African Americans > 60 (> 60)
[2018-12-17] MEDS: Heparin 25,000 UNIT/250 ML D5W 25,000 UNIT/250 ML IV.SOLN IVC SCH (14:03)
[2018-12-17] MEDS: *HR* OxyCODONE Immed Rel 5 MG TABLET PO PRN (17:50)
[2018-12-17] MEDS: Baclofen 10 MG TABLET PO SCH (20:46)
[2018-12-17] MEDS: Primidone 50 MG TABLET PO SCH (20:46)
[2018-12-17] MEDS: rOPINIRole 0.25 MG TABLET PO SCH (20:46)
--- NOTE | 2018-12-18 00:09 | Internal Med Progress Note ---
Hospitalist Progress Note - Encounter Date of Encounter: 12/17/18 Time of Encounter: 19:00 - Subjective Interval History: SUBJECTIVE: The patient feels good. Denies chest pain and difficulty breathing. Denies coughing and wheezing. Denies abdominal pain, nausea and vomiting. He seems to have normal bowel movements. He has normal urination. OBJECTIVE: Skin: Free of rash and discoloration. ENMT: Oral/pharyngeal mucosa is normal in appearance. Eyes: Sclera is yellowish. There is no discharge from eyes. Respiratory: Normal breath sounds; no crackles or wheezes. CV: Heart is regular; no gallop or murmur. GI: Abdomen is soft and not tender. There is no palpable mass or visceromegaly. Neuro: There is no focal deficits. ADDITIONAL DATA: His WBC is normal; was 13.8 thousand yesterday. With normal hemoglobin/platelet count. BMP is normal. Liver function tests are showing decreasing bilirubin, AST and ALT. They are 3.1, 60 and 101 respectively. Alkaline phosphatase is normal. Viral hepatitis panel is negative. Ultrasound of gallbladder/liver done at admission showed mild hepatic steatosis. And some dependent sludge within the gallbladder. The patient had stress test done today. It showed no ischemia on perfusion study. It showed extensive inferior/inferior lateral/inferior septal infarct, on perfusion study. Likely representing old [place]. Estimated ejection fraction is 40%. Cardiac telemetry: He continues to have rate controlled atrial flutter/atrial fibrillation. ASSESSMENT AND PLAN: Patient was admitted for evaluation of his chest pain. It looks like he has underlying coronary artery disease (had myocardial infarction in the past). Developed atrial fibrillation/flutter with controlled ventricular rate yesterday afternoon. He is on IV heparin drip. With Toprol-XL and aspirin. Cardiology is following. The patient eventually will need cardiac catheterization. It is on hold due to his abnormal liver function tests. Abnormal liver function tests. They indicate some problem in his liver. Without any obstruction in the biliary tree. The enzymes started decreasing. To monitor them closely. GI service consult will be requested tomorrow. Leukocytosis. Likely secondary to his liver disease. Subsided. Chronic low back pain. Had low back surgery last year. To continue when necessary Percocet. - Exam Vitals: Temp Pulse Resp BP Pulse Ox 98.8 F 74 17 164/70 93 12/17/18 23:01 12/17/18 23:01 12/17/18 23:01 12/17/18 23:01 12/17/18 23:01 Exam: xx - Assessment and Plan (1) Atypical chest pain Current Visit: Yes Status: Acute (2) CAD (coronary artery disease) Current Visit: Yes Status: Chronic (3) LFT elevation Current Visit: Yes Status: Acute (4) Leukocytosis Current Visit: Yes Status: Acute (5) Chronic low back pain Current Visit: Yes Status: Acute - Time Spent with Patient Total time spent is greater than 50% in coordination of care (as documented) at patient's floor/unit and/or counseling patient: 25 - 35 minutes Plan of Care Discussed with: patient Internal Medicine: Result - Labs CBC & Chem 7: 12/17/18 10:42 12/17/18 10:42 Labs: Short CBC 12/16/18 12/17/18 Range/Units 23:39 10:42 WBC 13.8 H 10.6 (4.3-11.1) K/mcL Hgb 14.4 14.0 (12.9-16.9) g/dL Hct 44.1 43.0 (37.5-50.1) % Plt Count 147 142 (140-400) K/mcL Neutrophils # 11.8 H 8.9 (1.6-8.9) K/mcL BMP 12/16/18 12/17/18 23:39 10:42 Sodium 140 140 Potassium 3.5 3.6 Chloride 108 H 108 H Carbon Dioxide 24 26 BUN 19 16 Creatinine 0.84 0.77 Glucose 147 H 139 H Calcium 8.3 L 8.3 L Liver Function 12/16/18 12/17/18 Range/Units 23:39 10:42 Total Bilirubin 4.1 H 3.1 H (0.3-1.0) mg/dL Direct Bilirubin 2.9 H 2.0 H (0.0-0.2) mg/dL AST 82 H 60 H (13-39) Units/L ALT 120 H 101 H (7-52) Units/L Alkaline Phosphatase 90 96 (34-104) Units/L Albumin 3.6 3.4 L (3.5-5.7) g/dL Urine 12/17/18 Range/Units 00:02 Urine Color Janet A (Yellow) Urine Clarity Clear (Clear) Urine pH 6.0 (5.0-8.0) pH Units Ur Specific Jeannette 1.027 H (1.010-1.025) Urine Protein 100 H (Neg-Trace) mg/dL Urine Glucose (UA) Normal (Normal) mg/dL - ABG Interpretation ABG results: PT/INR, D-dimer PT 15.0 Seconds (9.4-12.1) H 12/16/18 20:00 Consult Discharge Plan - Plan Referrals: Alondra Reynolds, MEDICAL DOCTOR [facility]LE[facility] [Primary Care Provider] - (Follow up has been requested) (2) CAD (coronary artery disease) Qualifiers: Coronary Disease-Associated Artery/Lesion type: [place] artery [place] vs. transplanted heart: [place] heart Associated angina: with unspecified angina Qualified Code(s): I25.119 - Atherosclerotic heart disease of [place] coronary artery with unspecified angina pectoris (4) Leukocytosis Qualifiers: Leukocytosis type: unspecified Qualified Code(s): D72.829 - Elevated white blood cell count, unspecified (5) Chronic low back pain Qualifiers: Back pain laterality: midline Sciatica presence: without sciatica Qualified Code(s): M54.5 - Low back pain; G89.29 - Other chronic pain
[2018-12-18] MEDS: Heparin 25,000 UNIT/250 ML D5W 25,000 UNIT/250 ML IV.SOLN IVC SCH ×2 (02:35→19:27)
[2018-12-18] MEDS: *HR* OxyCODONE Immed Rel 5 MG TABLET PO PRN ×3 (02:42→19:37)
--- NOTE | 2018-12-18 08:47 | Electrocardiograph Report ---
[place] [id number] Test Date: 2018-12-15 Pat Name: Bud Tovar Department: EXAM5 Room: 3B44 Gender: M Applications Developer: : 1940 Requested By: Burke Teague Order Number: [id number] Reading MD: Tomas Fregoso Measurements Intervals [place] Rate: 108 P: [place]: QRS: -90 QRSD: 157 T: 56 QT: 372 QTc: 499 Interpretive Statements Probable atrial flutter RBBB and LAFB Electronically Signed On 12-18-2018 8:45:39 EDT by Tomas Fregoso
[2018-12-18] MEDS: Metoprolol XL (24 HR) Succ 50 MG TAB.ER.24H PO SCH (08:51)
[2018-12-18] MEDS: Aspirin 81 MG TAB.CHEW PO SCH (08:52)
[2018-12-18] MEDS: BuPROPion XL (24 HR) 150 MG TABLET PO SCH (08:52)
[2018-12-18 10:47] LABS: Basophils % 0.3 %; Eosinophils # 0.4 K/mcL (0.0-0.6); Eosinophils % 5.7 %; Hematocrit 42.5 % (37.5-50.1); Hemoglobin 14.3 g/dL (12.9-16.9); Immature Granulocytes % 0.6 % (0-4); Lymphocytes # 0.5 K/mcL (0.6-4.6); Mean Corpuscular HGB Conc 33.6 g/dL (31.6-35.5); Mean Corpuscular Hemoglobin 31.2 pg (28.0-33.3); Mean Corpuscular Volume 92.6 fL (83.0-100.0); Mean Platelet Volume 11.8 fL (9.4-12.4); Monocytes # 0.5 K/mcL (0.0-1.3); Monocytes % 7.6 %; Neutrophils # 5.1 K/mcL (1.6-8.9); Platelet Count 137 K/mcL (140-400); Red Blood Count 4.59 M/mcL (4.19-5.50); Red Cell Distribution Width 14.5 % (11.5-14.5); Segmented Neutrophils % 77.8 %
[2018-12-18 11:01] LABS: Alanine Aminotransferase 80 Units/L (7-52); Albumin 3.5 g/dL (3.5-5.7); Albumin/Globulin Ratio 1.8 (1.1-2.2); Alkaline Phosphatase 133 Units/L (34-104); Aspartate Amino Transferase 38 Units/L (13-39); BUN/Creatinine Ratio 14 (6-26); Bilirubin,Direct 1.7 mg/dL (0.0-0.2); Bilirubin,Indirect 0.9 mg/dL (0.0-1.2); Bilirubin,Total 2.6 mg/dL (0.3-1.0); Blood Urea Nitrogen 9 mg/dL (8-23); Calcium 8.7 mg/dL (8.6-10.3); Carbon Dioxide 26 mEq/L (23-29); Chloride 107 mEq/L (98-107); Glucose 167 mg/dL (70-105); Osmolality,Calculated 292 (280-300); Potassium 3.4 mEq/L (3.5-5.1); Sodium 140 mEq/L (136-145); Total Protein 5.5 g/dL (6.4-8.9); eGFR For Non-African Americans > 60 (> 60)
--- NOTE | 2018-12-18 12:56 | Event Note ---
Date of Encounter: 12/18/18 Time of Encounter: 12:53 - Cardiology Event Note Stress test with infarct, no ischemia, no previous history of CAD. Being worked up for elevated LFTs. Recommend LHC prior to discharge. Of note, now a.fib, HR controlled. ON heparin drip for anticoagulation. Would continue heparin, will determine alf anticoagulation pending LHC. Cardiology will sign off for now, please re-consult pending liver work up when patient is stable for LHC.
[2018-12-18] MEDS: Baclofen 10 MG TABLET PO SCH (19:37)
[2018-12-18] MEDS: rOPINIRole 0.25 MG TABLET PO SCH (19:37)
[2018-12-18] MEDS: Primidone 50 MG TABLET PO SCH (19:37)
[2018-12-19] MEDS: *HR* Heparin 5,000 UNIT/ML VIAL IVP PRN (06:13)
--- NOTE | 2018-12-19 06:37 | Internal Med Progress Note ---
Hospitalist Progress Note - Encounter Date of Encounter: 12/18/18 Time of Encounter: 19:00 - Subjective Interval History: SUBJECTIVE: The patient is basically asymptomatic, when staying in bed. Obviously, he develops low back pain when standing or walking; can do those activities for maximum of 10-15 minutes. Denies chest pain and difficulty breathing. Denies abdominal pain, nausea and vomiting. He has normal urination. OBJECTIVE: Skin: Free of rash and discoloration. ENMT: Oral/pharyngeal mucosa is normal in appearance. Eyes: Sclera is white. There is no discharge from eyes. Respiratory: Normal breath sounds; no crackles or wheezes. CV: Heart is regular; no gallop or murmur. GI: Abdomen is soft and not tender. There is no palpable mass or visceromegaly. Neuro: There is no focal deficits. ADDITIONAL DATA: CBC is normal. BMP is normal. Liver function tests are improving. Bilirubin is 2.6 with AST of 38 and ALT of 80. Alkaline phosphatase is 133. Viral hepatitis panel is negative. Ultrasound of gallbladder/liver done at admission showed mild hepatic steatosis. And some dependent sludge within the gallbladder. The patient had stress test done 2 days ago. It showed no ischemia on perfusion study. It showed extensive inferior/inferior lateral/inferior septal infarct, on perfusion study. Likely representing old [place]. Estimated ejection fraction is 40%. Cardiac telemetry: He continues to have rate controlled atrial flutter/atrial fibrillation. ASSESSMENT AND PLAN: Patient was admitted for evaluation of his chest pain. It looks like he has underlying coronary artery disease (had myocardial infarction in the past). Developed atrial fibrillation/flutter with controlled ventricular rate yesterday afternoon. He is on IV heparin drip. With Toprol-XL and aspirin. I discussed this case with cardiology. We feel, that he should have cardiac catheterization before the discharge. It will be likely done tomorrow. Abnormal liver function tests. They indicate some problem in his liver. Without any obstruction in the biliary tree. The enzymes are decreasing. He may have some viral infection in the liver. It is definitely not hepatitis A, B and C. Chronic low back pain. Had low back surgery last year. To continue when necessary Percocet. - Exam Vitals: Temp Pulse Resp BP Pulse Ox 98.6 F 62 18 146/91 96 12/19/18 03:40 04/16/19 03:40 12/19/18 03:40 12/19/18 03:40 12/19/18 03:40 Exam: xx - Assessment and Plan (1) Atypical chest pain Current Visit: Yes Status: Acute (2) CAD (coronary artery disease) Current Visit: Yes Status: Chronic (3) LFT elevation Current Visit: Yes Status: Acute (4) Chronic low back pain Current Visit: Yes Status: Acute - Time Spent with Patient Total time spent is greater than 50% in coordination of care (as documented) at patient's floor/unit and/or counseling patient: 25 - 35 minutes Plan of Care Discussed with: patient Internal Medicine: Result - Labs CBC & Chem 7: 12/18/18 10:19 12/18/18 10:19 Labs: Short CBC 12/18/18 Range/Units 10:19 WBC 6.5 (4.3-11.1) K/mcL Hgb 14.3 (12.9-16.9) g/dL Hct 42.5 (37.5-50.1) % Plt Count 137 L (140-400) K/mcL Neutrophils # 5.1 (1.6-8.9) K/mcL BMP 12/18/18 10:19 Sodium 140 Potassium 3.4 L Chloride 107 Carbon Dioxide 26 BUN 9 Creatinine 0.63 L Glucose 167 H Calcium 8.7 Liver Function 12/18/18 Range/Units 10:19 Total Bilirubin 2.6 H (0.3-1.0) mg/dL Direct Bilirubin 1.7 H (0.0-0.2) mg/dL AST 38 (13-39) Units/L ALT 80 H (7-52) Units/L Alkaline Phosphatase 133 H (34-104) Units/L Albumin 3.5 (3.5-5.7) g/dL - ABG Interpretation ABG results: PT/INR, D-dimer PT 15.0 Seconds (9.4-12.1) H 12/16/18 20:00 - Impressions Impressions Echocardiogram 12/18/18 07:00 Impressions: LVEF 50%. Mild concentric left ventricular hypertrophy. Not all LV segments were well visualized. Overall, LV function appears to be low normal. Atypical septal motion consistent with bundle branch block. Normal right ventricular structure and function. No evidence of pulmonary hypertension. No evidence of a PFO with agitated saline contrast. Future studies should be completed with contrast enhancement. Findings: Study Quality * Technically sub-optimal due to body habitus. ECG Findings * Rhythm appeared to be atrial fibrillation. Bundle-branch block noted. Left Ventricle * LVEF 50%. * not all LV segments were well visualized. Overall, LV function appears to be low normal. * Mild concentric left ventricular hypertrophy. * Not all LV segments were well visualized. Overall, LV function appears to be low normal. * Atypical septal motion consistent with bundle branch block. Right Ventricle * Normal right ventricular structure and function. Left Atrium * Mildly dilated left atrium. Right Atrium * Normal right atrial size. Aortic Valve * Grossly, the aortic valve appeared to be trileaflet. The annulus appears to be calcified. * No aortic regurgitation. * No aortic stenosis. Mitral Valve * Normal mitral valve structure and function. * No mitral regurgitation. * No mitral stenosis. Tricuspid Valve * Normal tricuspid valve structure and function. * Trace tricuspid regurgitation. * No evidence of pulmonary hypertension. Pulmonic Valve * Pulmonic valve not well visualized. * No pulmonic regurgitation. Aorta * Normally sized aortic root. Pericardium * The pericardium appears normal. IVC * IVC is dilated. Greater than 50% respiratory variation Pulmonary Artery * Pulmonary artery not well visualized. Interatrial Septum * No evidence of a PFO with agitated saline contrast. Consult Discharge Plan - Plan Referrals: Alondra Reynolds CNP [Primary Care Provider] - 12/25/18 1:30 pm () Aidan Rojas DO [Partnered Physician] - 12/19/18 (2) CAD (coronary artery disease) Qualifiers: Coronary Disease-Associated Artery/Lesion type: [place] artery [place] vs. transplanted heart: [place] heart Associated angina: with unspecified angina Qualified Code(s): I25.119 - Atherosclerotic heart disease of [place] coronary artery with unspecified angina pectoris (4) Chronic low back pain Qualifiers: Back pain laterality: midline Sciatica presence: without sciatica Qualified Code(s): M54.5 - Low back pain; G89.29 - Other chronic pain
[2018-12-19] MEDS: Metoprolol XL (24 HR) Succ 50 MG TAB.ER.24H PO SCH (08:20)
[2018-12-19] MEDS: BuPROPion XL (24 HR) 150 MG TABLET PO SCH (08:20)
[2018-12-19] MEDS: Aspirin 81 MG TAB.CHEW PO SCH (08:20)
[2018-12-19] MEDS: *HR* OxyCODONE Immed Rel 5 MG TABLET PO PRN ×3 (08:22→23:15)
[2018-12-19] MEDS: Heparin 25,000 UNIT/250 ML D5W 25,000 UNIT/250 ML IV.SOLN IVC SCH (08:53)
[2018-12-19 09:09] LABS: Basophils % 0.7 %; Eosinophils # 0.4 K/mcL (0.0-0.6); Eosinophils % 6.7 %; Hematocrit 44.4 % (37.5-50.1); Hemoglobin 14.2 g/dL (12.9-16.9); Immature Granulocytes % 0.8 % (0-4); Lymphocytes # 0.7 K/mcL (0.6-4.6); Lymphocytes % 11.8 %; Mean Corpuscular Hemoglobin 30.1 pg (28.0-33.3); Mean Corpuscular Volume 94.3 fL (83.0-100.0); Mean Platelet Volume 12.3 fL (9.4-12.4); Monocytes # 0.7 K/mcL (0.0-1.3); Monocytes % 11.3 %; Neutrophils # 4.2 K/mcL (1.6-8.9); Platelet Count 152 K/mcL (140-400); Red Blood Count 4.71 M/mcL (4.19-5.50); Red Cell Distribution Width 14.5 % (11.5-14.5); Segmented Neutrophils % 68.7 %
[2018-12-19 09:18] LABS: Alanine Aminotransferase 73 Units/L (7-52); Aspartate Amino Transferase 33 Units/L (13-39); BUN/Creatinine Ratio 12 (6-26); Blood Urea Nitrogen 8 mg/dL (8-23); Calcium 8.7 mg/dL (8.6-10.3); Carbon Dioxide 27 mEq/L (23-29); Chloride 107 mEq/L (98-107); Glucose 120 mg/dL (70-105); Osmolality,Calculated 290 (280-300); Potassium 3.2 mEq/L (3.5-5.1); Sodium 140 mEq/L (136-145); eGFR For Non-African Americans > 60 (> 60)
--- NOTE | 2018-12-19 10:46 | Event Note ---
Date of Encounter: 12/19/18 Time of Encounter: 09:00 - Cardiology Event Note Plan for LHC today for abnormal stress test. LFTs improving. K 3.2-replaced. Risks versus benefits of LHC explained to patient, who states understanding and agreeable to proceed with LHC. Further recs pending LHC. Discussed and reviewed with and Dr.Jennifer Murillo.
[2018-12-19] MEDS ORDERED: 0.9 % Sodium Chloride 1,000 ML ONE ×2 (13:03→13:20)
[2018-12-19] MEDS ORDERED: ISOVUE-370 200 ML INFUS..BTL ONE (13:03)
[2018-12-19] MEDS ORDERED: *HR* Heparin 10,000 UNIT/10 ML VIAL ONE (13:03)
[2018-12-19] MEDS ORDERED: Nitroglycerin 1,000 MCG/10 ML VIAL IV ONE (13:03)
[2018-12-19] MEDS ORDERED: Heparin 1,000 UNITS/500 mL 500 ML ONE (13:03)
--- NOTE | 2018-12-19 13:06 | Pre-Sedation Evaluation ---
Pre-sedation evaluation - Pre-sedation checklist Date of procedure: 12/19/18 Procedure: left heart cath Recent Vitals: Last Vital Signs Temp 97.7 F 12/19/18 11:35 Pulse 67 12/19/18 11:35 Resp 18 12/19/18 11:35 BP 175/92 12/19/18 11:35 Pulse Ox 97 12/19/18 11:35 H&P (including ROS) documented in medical record: Yes Previous reaction to sedatives/anesthetics: No Dietary Status: NPO after Midnight Airway Assessment: Patient can open mouth completely, TMJ function normal, Micrognathia (under-bite, receding chin) absent, Neck with adequate range of motion Dentition: full dentition Possible difficult airway: No ASA Classification *see protocol: CLASS II-Mild systemic disease Plan of Care: Pt appropriate candidate for procedure/moderate/conscious sedation, Risks/benefits of procedure/sedation discussed w/ patient/family Cardiac Registry (Cardio Only) - Functional Capacity Functional Capacity: < 4 METS - Clincal Frailty Scale Clinical Frailty Scale: Vulnerable
[2018-12-19] MEDS ORDERED: *HR* Midazolam HCl 2 MG/2 ML VIAL ONE (13:24)
[2018-12-19] MEDS ORDERED: *HR* FentaNYL (PF) 100 MCG/2 ML VIAL ONE (13:24)
--- NOTE | 2018-12-19 14:01 | Invasive Diagnostic Lab Proc ---
Name: Bud Tovar Date of Study: 12/19/2018 Date: 1940 Ht: 74.0in Medical Record#: [id number] Age: 78 Wt: 229.28lb Gender: Male BSA: 2.3 Order #: [id number] BMI: 29.43 Physicians Procedure Physician: Shena Murillo MD, [facility] Referring MD: Referring MD: Staff Name Position Time In Inez Delgado RN Monitor 01:24 PM Feng Gutierrez RN Manager Sql 01:24 PM Marissa Maher RT (R) Scrub 01:24 PM Indications Indication Abnormal Test - Stress Procedures Performed Procedure L HRT ARTERY/VENTRICLE ANGIO Pre-Procedure Checklist Informed consent is complete signed and on chart. H&P is on chart. ID band is on and ID verified with patient. Patient NPO for procedure The procedure was described for the patient and questions were answered. Blood Pressure: 150/75 ECG is on chart. Rhythm: Atrial Flutter Plan of Care Patient will tolerate the procedure without complications. Adequate level of comfort will be maintained. Hemodynamics will remain stable Patient will recover from procedure without complications. Respiratory function will be maintained. Cardiac rhythm will remain stable. Patient temperature will be maintained. Patient and/or family have verbalized understanding of the procedure. Patient Education Chief Complaint/Reason for Test: Cardiac Cath Developmental Category: Geriatric (65+ years) Developmentally Appropriate for Age: Yes Learning Barriers: None Education Needs: Procedure Education Method: Verbal Information Taught: Cardiac Cath Educational Evaluation: Able to repeat information Intravenous Access Time IV Size Location DC'd Fluid/Drip Rate Units RN 01:23 PM 18g 1 1/4" Patent On Arrival Lt Antecubital 0.9NaCl 01:23 PM 20g 1 1/4" Patent On Arrival Rt Hand Allergies lisinopril Nsaid Vital Signs Time BP (mmHg) HR (bpm) O2 Sat. RR (bpm) LOC 01:24 PM / % 5 = Fully awake and oriented or at pre-proc level 01:24 PM / % 4 = Oriented but drowsy 01:26 PM 190 / 103 73 96 % 17 01:30 PM 175 / 103 74 93 % 20 01:36 PM 163 / 105 71 95 % 21 01:41 PM 182 / 105 75 95 % 20 01:45 PM 193 / 102 73 96 % Procedural Medications Time Medication Dose Units Method Given By 01:24 PM Oxygen 2 L/min nasal cannula Feng Gutierrez RN 01:25 PM Versed 2 mg Intravenous Fegn Gutierrez RN 01:26 PM Fentanyl 50 mcg Intravenous Feng Gutierrez RN 01:30 PM Lidocaine 2% 18 ml Subcutaneous Shena Murillo MD, [facility] ASA Classification: CLASS II- Mild systemic disease (i.e. well-controlled diabetes, hypertension, asthma, cigarette smoking) Darlin Score Preprocedure Postprocedure Activity 2- Moves 4 extremities sustained head lift Activity 2- Moves 4 extremities sustained head lift Circulation 2- SBP +/= 20 points of pre-anesthetic level Circulation 2- SBP +/= 20 points of pre-anesthetic level Consciousness 2- Awake and alert oriented x 3 Consciousness 2- Awake and alert oriented x 3 O2 Saturation 2- Able to maintain O2 satruation of 92% on room air O2 Saturation 2- Able to maintain O2 satruation of 92% on room air Respiratory 2- Able to deep breathe and cough well Respiratory 2- Able to deep breathe and cough well Total Score 10 Total Score 10 Contrast Agent: Isovue Diagnostic Contrast: 65 ml Total Contrast: 65 ml Fluoro Dose: 46 mGy Procedure Log Time Note Enter By 01:11 PM CathStat 01:24 PM Pt arrived to laboratory geneticist 2 at 13:24 scoates :24 PM Physician arrived 13:24 scoates :24 PM ASA Class CLASS II- Mild systemic disease (i.e. well-controlled diabetes, hypertension, asthma, cigarette smoking) scoates :24 PM Meet and greet completed scoates 01:24 PM Sign in performed according to hospital policy. Informed consent was obtained. scoates 01:24 PM Procedure start 13:24 scoates :24 PM Time: 13:24 Patient comfortable and pain free: Yes scoates :24 PM Time: 13:24LOC: 5 = Fully awake and oriented or at pre-proc level scoates :24 PM Time: 13:24 Oxygen on at 2 L/min per nasal cannula by Feng Gutierrez RN scoates :24 PM Inez Delgado RN Position: Monitor Time in: 13:24 scoates 01:24 PM Feng Gutierrez RN Position: Manager Sql Time in: 13:24 scoates :24 PM Gunnar, Marissa RT (R) Position: Scrub Time in: 13:24 scoates 01:24 PM Patient charges- Angio tray pack, Navilyst 3mm J, Pulse Oximetry and ACIST tubing and transducer scoates 01:24 PM Vitals capture started with the following parameters, Patient=Adult, Interval=5 min, Initial Ozxcwsxq=576 mmHg, Deflation Rate=5 mmHg, Cuff placed on Right Arm 01:25 PM Case Delayed no, inpatient scoates 01: PM Hair removed from procedure site in procedure lab using clippers. Bilateral groin prepped with Chloraprep by Inez Delgado RN, then patient was draped. Skin intact. scoates 01: PM HR=73 bpm, NDBG=143/103 mmhg, SpO2=96.0 %, Resp=17 B/min, EtCO2=33 mmHg, Comment=aflutter PM Time: 13:25 Versed 2 mg Intravenous Given by Feng Gutierrez RN scoates PM Time: 13:26 Fentanyl 50 mcg Intravenous Given by Feng Gutierrez RN scoates :28 PM Clinical Presentation: Non-STEMI scoates 01:29 PM Pressure channel 1 zeroed. 01:30 PM Time out was performed according to hospital policy. Conscious sedation and anesthesia was achieved (see medication log with in this report above) scoates 01:30 PM HR=74 bpm, KXQQ=262/103 mmhg, SpO2=93.0 %, Resp=20 B/min, EtCO2=31 mmHg, Comment=aflutter 01:30 PM Time: 13:30 18 ml Lidocaine 2% to right groin Subcutaneous Given by Shena Murillo MD, [facility] scoates 01:33 PM Access obtained by percutaneous puncture. 5Fr 10cm Terumo Leighton sheath placed in right Femoral artery. [id number] scoates 01:33 PM 5Fr FL 4 catheter inserted over the wire DN scoates 01:33 PM LCA angiography performed in multiple views. scoates 01:33 PM Recorded Pressure: Ao, HR=75, Condition=Condition 1 (Aorta) Ao 149/93/119 01:34 PM Catheter removed scoates 01:34 PM 5Fr FR 4 catheter inserted over the wire [facility] scoates 01:36 PM RCA angiography performed in multiple views. scoates 01:36 PM HR=71 bpm, QVKB=965/105 mmhg, SpO2=95.0 %, Resp=21 B/min, EtCO2=33 mmHg, Comment=aflutter 01:36 PM Recorded Pressure: Ao, HR=66, Condition=Condition 1 (Aorta) Ao 155/94/121 01:37 PM Coronary Dominance: right scoates 01:37 PM Catheter removed scoates 01:37 PM 5Fr Pigtail catheter inserted over the wire [facility] scoates 01:37 PM Catheter crossed the aortic valve and was selectively placed in the left ventricle. Pressures recorded on pullback for left heart catheterization. scoates 01:37 PM Bolus angiogram of left Ventricle complete: 8 ml/sec for a total of 24 mls scoates 01:38 PM Pressure channel 1 zeroed. 01:39 PM Recorded Pressure: LV, HR=74, Condition=Condition 1 (Left Ventricle) LV 154/-3/4 01:39 PM Time: 13:24LOC: 4 = Oriented but drowsy scoates 01:39 PM Time: 13:24 Patient comfortable and pain free: Yes scoates 01:39 PM Recorded Pressure: LV, Ao, HR=79, Condition=Condition 1 (Left Ventricle) LV 132/16/48, (Aorta) Ao 157/81/115 01:39 PM Catheter removed scoates 01:39 PM physician reviewing films scoates 01:40 PM Bolus angiogram of right Femoral complete: 4 ml/sec for a total of 7 mls scoates 01:41 PM Procedure completed at 13:41 12/19/2018 scoates 01:41 PM Did you address KYLEIGH flow and Dominance? Yes scoates 01:41 PM HR=75 bpm, ZHWX=124/105 mmhg, SpO2=95.0 %, Resp=20 B/min, Comment=aflutter 01:42 PM Sign out completed: Radiation Dose 235 mGy, 45.5 Gy/cm2 Fluoro Time: 1.8 Isovue 370 - 200ml contrast 65 ml given by Shena Murillo MD, [facility]. Complications: None. The patient was discharged out of the laboratory animal caretaker in stable condition. Sedation minutes 15. Cardiac Rehab Consult needed: No. Confirmed administered medications: Yes scoates 01:42 PM Isovue 370 - 200ml,1 Bottle(s) used. scoates 01:42 PM Arterial sheath pulled, Mynx closure device used and was Successful [id number] S/N. scoates 01:42 PM Estimated Blood Loss: minimal scoates 01:42 PM Post ECG Atrial Flutter scoates 01:42 PM Post Blood Pressure 182/105 scoates 01:44 PM 13:44 Post Pulses Bilateral DP & PT 1+ scoates 01:44 PM Information taught Cardiac Cath and Mynx scoates 01:44 PM Education needs Procedure, Plan of Care, and Responsibilities of Patient in Care scoates 01:45 PM Learning barriers :None scoates 01:45 PM Education Methods Verbal scoates 01:45 PM Education evaluation Able to repeat information scoates 01:45 PM Site status No bleeding/hematoma - Rt Groin as reported by Marissa Maher RT (R) at 13:45 scoates 01:45 PM Opsite applied scoates 01:45 PM Plavix, Effient or Brilinta given No scoates 01:45 PM Delay to floor No scoates 01:45 PM Family placed in consult room. scoates 01:45 PM Complications: None scoates 01:45 PM HR=73 bpm, IJMV=781/102 mmhg, SpO2=96.0 % Complications Complication None None Hemodynamics Pressures Site Systolic/A Wave Diastolic/V Wave Mean AO 149 93 119 AO 155 94 121 LV 154 -3 4 LV 132 16 48 AO 157 81 115 Post Procedure Information Blood Pressure: 182/105 mmHg Rhythm: Atrial Flutter Post procedural instructions were given Closure Device Time Device Success/Fail 12/19/2018 1:45:00 PM MynxGrip Successful Site Checks Time Location Status Staff Sheath In? Note 01:45 PM Rt Groin No bleeding/hematoma Marissa Maher RT (R) Pulses Time Site Pre-Procedure Post-Procedure Note 12/19/2018 1:23:00 PM Bilateral DP & PT 2+ 1:44:00 PM Bilateral DP & PT 1+ Updated by Inez Briceño RN on 12/19/2018 1:52:44 PM electronically signed on 12/19/2018 1:53:06 PM with status of Final
--- NOTE | 2018-12-19 15:22 | Event Note ---
Date of Encounter: 12/19/18 Time of Encounter: 15:18 - Cardiology Event Note Discussed and reviewed with Dr.Jennifer Murillo, [facility] with normal coronaries. Regarding a.flutter, patient is rate controlled on BB. Kwogo1wqfx score 6 (age 4, HTN, DM, CVA 2). Recommend snf anticoagulation. Of note, patient is al so on mysoline which interacts with xarelto and eliquis. Will start coumadin for anticoagulation per pharmacy to dose. Will send referral to [facility]. Of note, possiblility of patient moving to [place] with children, if patient remains in [place], will arrange outpatient follow up with EP. Can consider outpatient a.flutter ablation.
[2018-12-19] MEDS: *HR* Heparin 5,000 UNIT/ML VIAL SQ SCH (17:47)
[2018-12-19] MEDS ORDERED: Warfarin perPT PO SCH (18:00)
[2018-12-19] MEDS ORDERED: *HR* Warfarin 5 MG TABLET PO ONE (18:00)
[2018-12-19] MEDS: rOPINIRole 0.25 MG TABLET PO SCH (21:37)
[2018-12-19] MEDS: Baclofen 10 MG TABLET PO SCH (21:37)
[2018-12-19] MEDS: Primidone 50 MG TABLET PO SCH (21:37)
[2018-12-20] MEDS: *HR* OxyCODONE Immed Rel 5 MG TABLET PO PRN (05:17)
[2018-12-20] MEDS: *HR* Heparin 5,000 UNIT/ML VIAL SQ SCH (05:17)
[2018-12-20 05:29] LABS: INR 1.2; Prothrombin Time 13.2 Seconds (9.4-12.1)
--- NOTE | 2018-12-20 06:41 | Internal Med Progress Note ---
Hospitalist Progress Note - Encounter Date of Encounter: 12/19/18 Time of Encounter: 19:00 - Subjective Interval History: SUBJECTIVE: The patient had a cardiac catheterization today. It showed normal coronaries. He continues to have atrial fibrillation with controlled ventricular rate. Denies abdominal pain, nausea and vomiting. He has normal appetite. The patient is basically asymptomatic, when staying in bed. He develops low back pain, when standing or walking; can do those activities for maximum of 10- 15 minutes. He had low back surgery sometime last year. OBJECTIVE: Skin: Free of rash and discoloration. ENMT: Oral/pharyngeal mucosa is normal in appearance. Eyes: Sclera is white. There is no discharge from eyes. Respiratory: Normal breath sounds; no crackles or wheezes. CV: Heart is regular; no gallop or murmur. GI: Abdomen is soft and not tender. There is no palpable mass or visceromegaly. Neuro: There is no focal deficits. ADDITIONAL DATA: I am ordering BMP and hepatic panel for tomorrow. Ultrasound of gallbladder/liver done at admission showed mild hepatic steatosis. With some dependent sludge within the gallbladder. The patient had stress test done 3 days ago. It showed no ischemia on perfusion study. It showed extensive inferior/inferior lateral/inferior septal infarct, on perfusion study. Likely representing old [place]. Estimated ejection fraction is 40%. Cardiac catheterization from today showed normal coronaries. Cardiac telemetry: He continues to have rate controlled atrial flutter/atrial fibrillation. ASSESSMENT AND PLAN: Chest pain. Normal coronaries on cardiac catheterization done today. Stress test shows evidence for old myocardial infarction. On Lopressor and aspirin. See notes from cardiology. Atrial fibrillation. Rate controlled. Coumadin has been started. We cannot use Xarelto or Eliquis, as they interact with Mysoline. Abnormal liver function tests. They indicate some problem in his liver. Without any obstruction in the biliary tree. He is tested negative for hepatitis A, B and C. He might have had some other viral infection. He denies alcohol use. Chronic low back pain. Had low back surgery last year. To continue when necessary Percocet. Disposition: I feel, that the patient can be discharged tomorrow with bridging Lovenox. To check with his insurance. - Exam Vitals: Temp Pulse Resp BP Pulse Ox 97.5 F L 76 16 163/92 96 12/20/18 03:06 12/20/18 03:06 12/20/18 03:06 12/20/18 03:06 12/20/18 03:06 Exam: xx - Assessment and Plan (1) Atypical chest pain Current Visit: Yes Status: Acute (2) Old [place] (myocardial infarction) Current Visit: Yes Status: Acute (3) AF (atrial fibrillation) Current Visit: Yes Status: Acute (4) LFT elevation Current Visit: Yes Status: Acute (5) Chronic low back pain Current Visit: Yes Status: Acute - Time Spent with Patient Total time spent is greater than 50% in coordination of care (as documented) at patient's floor/unit and/or counseling patient: Internal Medicine: Result - Labs CBC & Chem 7: 12/19/18 04:51 12/19/18 04:51 Labs: Short CBC 12/19/18 Range/Units 04:51 WBC 6.1 (4.3-11.1) K/mcL Hgb 14.2 (12.9-16.9) g/dL Hct 44.4 (37.5-50.1) % Plt Count 152 (140-400) K/mcL Neutrophils # 4.2 (1.6-8.9) K/mcL BMP 12/19/18 04:51 Sodium 140 Potassium 3.2 L Chloride 107 Carbon Dioxide 27 BUN 8 Creatinine 0.66 L Glucose 120 H Calcium 8.7 Liver Function 12/19/18 Range/Units 04:51 AST 33 (13-39) Units/L ALT 73 H (7-52) Units/L - ABG Interpretation ABG results: PT/INR, D-dimer PT 13.2 Seconds (9.4-12.1) H 12/20/18 04:20 Consult Discharge Plan - Plan Referrals: Alondra Reynolds CNP [Primary Care Provider] - 12/25/18 1:30 pm () Aidan Rojas DO [Partnered Physician] - 12/19/18 (5) Chronic low back pain Qualifiers: Back pain laterality: midline Sciatica presence: without sciatica Qualified Code(s): M54.5 - Low back pain; G89.29 - Other chronic pain
[2018-12-20 07:17] VITALS: BP 153/92
[2018-12-20] MEDS ORDERED: Ondansetron 4 MG/2 ML VIAL ONE (08:40)
[2018-12-20] MEDS: Metoprolol XL (24 HR) Succ 50 MG TAB.ER.24H PO SCH (08:43)
[2018-12-20] MEDS: BuPROPion XL (24 HR) 150 MG TABLET PO SCH (08:43)
[2018-12-20] MEDS: Aspirin 81 MG TAB.CHEW PO SCH (08:45)
[2018-12-20] MEDS ORDERED: Ondansetron 4 MG/2 ML VIAL IVP PRN (08:46)
[2018-12-20 08:56] LABS: Alanine Aminotransferase 67 Units/L (7-52); Albumin 3.6 g/dL (3.5-5.7); Albumin/Globulin Ratio 1.6 (1.1-2.2); Alkaline Phosphatase 151 Units/L (34-104); Aspartate Amino Transferase 34 Units/L (13-39); BUN/Creatinine Ratio 14 (6-26); Bilirubin,Direct 0.6 mg/dL (0.0-0.2); Bilirubin,Total 1.6 mg/dL (0.3-1.0); Blood Urea Nitrogen 10 mg/dL (8-23); Calcium 8.8 mg/dL (8.6-10.3); Carbon Dioxide 27 mEq/L (23-29); Chloride 105 mEq/L (98-107); Globulin 2.2 g/dL (2.4-3.5); Glucose 112 mg/dL (70-105); Osmolality,Calculated 290 (280-300); Potassium 3.3 mEq/L (3.5-5.1); Sodium 140 mEq/L (136-145); Total Protein 5.8 g/dL (6.4-8.9); eGFR For Non-African Americans > 60 (> 60)
[2018-12-20] MEDS ORDERED: levoFLOXacin 500 MG TABLET PO SCH (09:30)
--- NOTE | 2018-12-20 10:17 | Discharge Summary ---
- NOTES TO OUTPATIENT PROVIDER Notes to Outpatient Provider: f/u with PCP within 2 weeks. Orders not resulted at time of discharge: Pending orders 12/16/18 09:38 NM chris perf SPECT multi [NM] Routine 12/21/18 04:00 INR/PT [Prothrombin Time INR] [COAG] AM 0400 12/22/18 04:00 INR/PT [Prothrombin Time INR] [COAG] AM 04012/23/18 04:00 INR/PT [Prothrombin Time INR] [COAG] AM 04012/24/18 04:00 INR/PT [Prothrombin Time INR] [COAG] AM 040 Date of Encounter: 12/20/18 Time of Encounter: 10:14 - Discharge Diagnosis (1) Atypical chest pain Priority: Primary Status: Acute (2) Chronic low back pain Priority: Secondary Status: Chronic Qualifiers: Back pain laterality: midline Sciatica presence: without sciatica Qualified Code(s): M54.5 - Low back pain; G89.29 - Other chronic pain (3) LFT elevation Priority: Primary Status: Acute (4) Old [place] (myocardial infarction) Priority: Secondary Status: Chronic (5) AF (atrial fibrillation) Priority: Primary Status: Acute Qualifiers: Atrial fibrillation type: chronic Qualified Code(s): I48.2 - Chronic atrial fibrillation Hospital course: Mr. Tovar is a 78 year old male with past medical history significant for hypertension, CAD, and chronic back pain presented with acute onset of left- sided chest. He was described by the patient as burning in quality, 7 out of 10, radiated to lower extremities, and associated with nausea. Patient was admitted for further evaluation. Serial troponin was negative, EKG has no acute ST-T change. Patient underwent stress nuclear test on 12/16 which was negative for ischemia and infarction. He subsequently underwent cardiac catheterization which showed normal coronary artery. While in the hospital, patient also developed new onset of atrial fibrillation, cardiology was consulted, anticoagulation was recommended. Heart rate was controlled by metoprolol and Cardizem. Coumadin was started. Patient also found to have elevated bilirubin and liver enzymes, right upper quadrant Doppler and a hepatitis panel both were unremarkable. Patient was prescribed minocycline recently for possible UTI. Minocycline was discontinued, liver function test has improved. Minocycline-induced hepatitis was suspected. He instead, Levaquin oral was prescribed for 7 days. On the discharge today, patient vital signs were stable, labs were unremarkable, patient denies chest pain. He will be discharged to [facility] today per PT/OT recommendation. She was instructed to continue Coumadin every day and check PT/INR at the facility. He also was instructed to finish oral Levaquin. He will continue to follow-up with PCP as needed. Discharge discussed with: patient Time spent discussing smoking cessation with patient: more than 10 minutes - Time Spent with Patient Total time spent providing and/or coordinating discharge services: Time spent: Greater than 30 minutes - Discharge Medications Prescriptions: New levoFLOXacin [Levaquin] 500 mg PO DAILY #7 tablet Warfarin [Coumadin] 4 mg PO 1800 #5 tablet Continue BuPROPion XL (24 HR) [Wellbutrin Xl] 150 mg PO DAILY #7 tab.er.24h Primidone [Mysoline] 50 mg PO HS Meloxicam [Mobic] 7.5 mg PO BID Baclofen [Lioresal] 10 mg PO HS Ropinirole HCl [Requip] 0.25 mg PO HS Metoprolol Succinate [Toprol Xl] 75 mg PO DAILY OxyCODONE/APAP 5/325 [Percocet 5/325 MG] 1 each PO Q6HR PRN PRN Reason: Pain Discontinued Minocycline HCl 100 mg PO BID Home Medications: BuPROPion XL (24 HR) [Wellbutrin Xl] 150 mg PO DAILY #7 tab.er.24h 02/05/17 [Rx] Baclofen [Lioresal] 10 mg PO HS 11/20/18 [History] Meloxicam [Mobic] 7.5 mg PO BID 11/20/18 [History] Primidone [Mysoline] 50 mg PO HS 11/20/18 [History] Ropinirole HCl [Requip] 0.25 mg PO HS 11/20/18 [History] Metoprolol Succinate [Toprol Xl] 75 mg PO DAILY 12/15/18 [History] OxyCODONE/APAP 5/325 [Percocet 5/325 MG] 1 each PO Q6HR PRN 12/15/18 [History] Warfarin [Coumadin] 4 mg PO 1800 #5 tablet 12/20/18 [Rx] levoFLOXacin [Levaquin] 500 mg PO DAILY #7 tablet 12/20/18 [Rx] Allergies/Adverse Reactions: Allergy/AdvReac Type Severity Reaction Status Date / Time lisinopril AdvReac Cough Verified 09/01/15 12:05 NSAIDS (Non-Steroidal AdvReac See Verified 09/01/15 12:05 Anti-Inflamma Comments Date of admission: 12/19/18 17:27 Primary care physician: Alondra Reynolds CNP Consults: 12/15/18 18:14 Consult to Cardiology [CONS] Stat Comment: Consulting Provider: Cardiology [place] Reason for Consult: ECG changes, chest pain Time Notified: 18:14 Call Completed: Yes 12/17/18 16:44 Consult to Physical Therapy [CONS] Routine Comment: Evaluate, develop and implement POC Reason for Consult: weakness Does patient have active BEDREST order?: No Is patient medically & hemodynamically stable?: Yes Patient assessed for mobility or mobilized this visit?: Yes Consult to Javascript Programmer [CONS] Routine Reason for SW Consult: possible placement. Anticipated date of discharge: 12/20/18 - Constitutional Vitals: Temp Pulse Resp BP Pulse Ox 98.3 F 78 16 153/92 95 12/20/18 07:14 12/20/18 07:14 12/20/18 07:14 12/20/18 07:14 12/20/18 07:14 General appearance: Present: A&O X 3, no acute distress, answers questions appropriately Exam: PHYSICAL EXAMINATION: GENERAL APPEARANCE: The patient is alert, oriented and in no acute distress. HEENT: Head is normocephalic. The sinuses are nontender. Pupils are equal and reactive. The nares are patent. Oropharynx clear without lesions. NECK: Supple without lymphadenopathy. HEART: Regular rate and rhythm. LUNGS: No crackles or wheezes are heard. ABDOMEN: Soft, nontender, nondistended with good bowel sounds heard. Inguinal area is normal. EXTREMITIES: Without cyanosis, clubbing or edema. NEUROLOGICAL: Gross nonfocal. SKIN: Warm and dry without any rash. - Patient Status Disposition: Transfer SNF Condition: Fair Functional capacity at discharge: independent ambulation Overall status at discharge: patient is progressing back to baseline - Discharge Instructions Follow Up With: Alondra Reynolds CNP [Primary Care Provider] - 12/25/18 1:30 pm () Aidan Rojas DO [Partnered Physician] - 12/19/18 - Diet and Activity Activity: increase activity as tolerated Diet: advance to your usual diet
--- NOTE | 2018-12-20 10:32 | Physician Discharge Referral ---
ExtendedCare Referral Info Transfer To: [facility] Provider in Charge after Transfer: Other Institutional Level of Care: Skilled - Diagnosis (1) Atypical chest pain Priority: Primary Status: Acute (2) Chronic low back pain Priority: Secondary Status: Chronic (3) LFT elevation Priority: Primary Status: Acute (4) Old [place] (myocardial infarction) Priority: Secondary Status: Chronic (5) AF (atrial fibrillation) Priority: Primary Status: Acute Prognosis: Fair Aware of Diagnosis: Patient Aware of Prognosis: Patient - Transfer Medications Prescriptions: levoFLOXacin [Levaquin] 500 mg PO DAILY #7 tablet Warfarin [Coumadin] 4 mg PO 1800 #5 tablet Home Medications: BuPROPion XL (24 HR) [Wellbutrin Xl] 150 mg PO DAILY #7 tab.er.24h 02/05/17 [Rx] Baclofen [Lioresal] 10 mg PO HS 11/20/18 [History] Meloxicam [Mobic] 7.5 mg PO BID 11/20/18 [History] Primidone [Mysoline] 50 mg PO HS 11/20/18 [History] Ropinirole HCl [Requip] 0.25 mg PO HS 11/20/18 [History] Metoprolol Succinate [Toprol Xl] 75 mg PO DAILY 12/15/18 [History] OxyCODONE/APAP 5/325 [Percocet 5/325 MG] 1 each PO Q6HR PRN 12/15/18 [History] Warfarin [Coumadin] 4 mg PO 1800 #5 tablet 12/20/18 [Rx] levoFLOXacin [Levaquin] 500 mg PO DAILY #7 tablet 12/20/18 [Rx] Allergies/Adverse Reactions: Allergy/AdvReac Type Severity Reaction Status Date / Time lisinopril AdvReac Cough Verified 09/01/15 12:05 NSAIDS (Non-Steroidal AdvReac See Verified 09/01/15 12:05 Anti-Inflamma Comments - Respiratory Orders Smoking Cessation: Smoking cessation has been advised. For more information, call the [place] Tobacco Quit Line at 5-591-RDMI-NOW. - Advance Directives Code Status: Full Code CERTIFICATION: I certify that the transfer of the above named patient to an Extended Care Facility is necessary for the continuing treatment of the diagnosis listed. The above information is true and accurate reflection of patient's current condition. Confidential - Redisclosure prohibited without a patient's written consent.
--- NOTE | 2018-12-20 17:39 | Electrocardiograph Report ---
[address] [address] Test Date: 2018-12-15 Pat Name: Bud Tovar Department: EXAM5 Room: 3B44 Gender: M Accounts Payable Processor: : 1940 Requested By: Avtar Moscoso Order Number: [id number] Reading MD: Tomas Fregoso Measurements Intervals [place] Rate: 116 P: [place]: QRS: -95 QRSD: 155 T: 54 QT: 369 QTc: 513 Interpretive Statements Atrial flutter RBBB and LAFB Electronically Signed On 12-20-2018 17:38:14 EDT by Tomas Fregoso
[2018-12-20] MEDS ORDERED: *HR* Warfarin 5 MG TABLET PO ONE (18:00)
== END 2018-12-20 11:58 | DRG 287 ==
LOC: EMEROOARM 13:35 → 3BNU 13:35 → SUATTDRO 20:00 → 3BNU 21:15
PROVIDERS: ADMIT Hospitalist; ATTEND Internal Medicine